=== PATIENT | female | born 2000 | race Caucasian/White ===

== ENCOUNTER 2023-04-17 03:24 | Inpatient (IN) | payer OTHER, SELFPAY ==
[2023-04-17] VITALS (58 sets, daily range): BP systolic 81–126; BP diastolic 42–88; PULSE 49–150; RESP 14–18; TEMP 35.4–37
[2023-04-17 03:13] LABS: Bilirubin Urine NEGATIVE (NEGATIVE); Blood Urine NEGATIVE (NEGATIVE); Clarity Urine CLEAR (CLEAR); Color Urine LT. YELLOW (YELLOW); Glucose Urine UA NEGATIVE (NEGATIVE); Ketones Urine NEGATIVE (NEGATIVE); Leukocyte Esterase Urine NEGATIVE (NEGATIVE); Nitrite Urine NEGATIVE (NEGATIVE); Protein Urine NEGATIVE (NEG/TRACE); Urobilinogen Urine 0.2 EU/dL (0.2-1.0); pH Urine 7.5 (5.0-9.0)
[2023-04-17 03:14] LABS: Urine Microscopic Indicated NO
[2023-04-17] MEDS: 0.9 % SODIUM CHLORIDE 1,000 ML 125 ML IV ×2 (04:54→10:57)
[2023-04-17 05:03] LABS: Hematocrit 29.6 % (36.0-48.0); Hemoglobin 9.9 g/dL (12.0-16.0); Mean Corpuscular HGB Conc 33.4 g/dL (29.9-35.2); Mean Corpuscular Hemoglobin 27.6 pg (26.7-34.0); Mean Corpuscular Volume 82.5 fL (81.0-99.0); Mean Platelet Volume 11.1 fL (9.5-13.5); Platelet Count 269 10^3/uL (150-450); Red Blood Count 3.59 10^6/uL (4.20-5.40); White Blood Count 11.2 10^3/uL (4.0-11.0)
[2023-04-17] MEDS: ROPIVACAINE HCL/PF 400 MG/200 ML PREMIX EPIDURAL (06:10)
[2023-04-17] MEDS: 0.9 % SODIUM CHLORIDE 1,000 ML 999 ML IV ×2 (06:12→07:40)
[2023-04-17] MEDS: EPHEDRINE SULFATE 50 MG/ML VIAL IV (06:46)
[2023-04-17 10:43] LABS: Amphetamine Screen Urine NEGATIVE (NEGATIVE); Barbiturates Screen Urine NEGATIVE (NEGATIVE); Benzodiazepines Screen Urine NEGATIVE (NEGATIVE); Buprenorphine Screen Urine NEGATIVE (NEGATIVE); Cannabinoid Screen Urine NEGATIVE (NEGATIVE); Cocaine Screen Urine NEGATIVE (NEGATIVE); Methadone Screen Urine NEGATIVE (NEGATIVE); Methamphetamines Screen Urine NEGATIVE (NEGATIVE); Opiate Screen Urine NEGATIVE (NEGATIVE); Oxycodone Screen Urine NEGATIVE (NEGATIVE); Phencyclidine Screen Urine NEGATIVE (NEGATIVE); Tricyclic Antidepressant Urine NEGATIVE (NEGATIVE)
--- NOTE | 2023-04-17 12:16 | PM.OBPN ---
OB - PN: Subj Subjective Interval history: labor Exam Narrative Exam Narrative: 4 cm, posterior, high, 80 percent vertex membranes intact Constitutional Vital Signs - 24 hr 04/17/23 02:53 04/17/23 02:34 04/17/23 02:34 Temperature 98.1 F 98.1 F Pulse Rate 93 H 93 H Respiratory Rate 18 Blood Pressure 117/70 117/70 Blood Pressure [Left Arm] Oxygen Delivery Method 04/17/23 04:56 04/17/23 05:26 04/17/23 05:56 Temperature Pulse Rate 61 60 77 Respiratory Rate Blood Pressure 109/75 121/72 H 119/64 Blood Pressure [Left Arm] Oxygen Delivery Method 04/17/23 06:02 04/17/23 06:11 04/17/23 06:19 Temperature Pulse Rate 72 69 78 Respiratory Rate Blood Pressure 116/70 108/66 116/58 L Blood Pressure [Left Arm] Oxygen Delivery Method 04/17/23 06:24 04/17/23 06:29 04/17/23 06:33 Temperature Pulse Rate 90 64 86 Respiratory Rate Blood Pressure 104/64 103/56 L 93/55 L Blood Pressure [Left Arm] Oxygen Delivery Method 04/17/23 06:36 04/17/23 06:37 04/17/23 06:41 Temperature Pulse Rate 53 L 49 L 58 L Respiratory Rate Blood Pressure 81/42 L 102/57 L 97/55 L Blood Pressure [Left Arm] Oxygen Delivery Method 04/17/23 06:43 04/17/23 06:45 04/17/23 06:48 Temperature Pulse Rate 62 69 67 Respiratory Rate Blood Pressure 98/58 L 96/59 L 104/61 Blood Pressure [Left Arm] Oxygen Delivery Method 04/17/23 06:51 04/17/23 06:54 04/17/23 06:57 Temperature Pulse Rate 72 87 68 Respiratory Rate Blood Pressure 98/60 102/65 102/65 Blood Pressure [Left Arm] Oxygen Delivery Method 04/17/23 07:00 04/17/23 07:03 04/17/23 07:06 Temperature Pulse Rate 72 84 71 Respiratory Rate Blood Pressure 104/63 102/64 101/61 Blood Pressure [Left Arm] Oxygen Delivery Method 04/17/23 07:11 04/17/23 07:14 04/17/23 07:19 Temperature Pulse Rate 64 65 77 Respiratory Rate Blood Pressure 101/57 L 104/59 L 111/70 Blood Pressure [Left Arm] Oxygen Delivery Method 04/17/23 07:24 04/17/23 07:56 04/17/23 08:26 Temperature Pulse Rate 62 65 62 Respiratory Rate Blood Pressure 103/60 101/60 100/58 L Blood Pressure [Left Arm] Oxygen Delivery Method 04/17/23 09:26 04/17/23 09:56 04/17/23 10:27 Temperature Pulse Rate 75 86 76 Respiratory Rate Blood Pressure 96/55 L 105/55 L 112/63 Blood Pressure [Left Arm] Oxygen Delivery Method 04/17/23 10:50 04/17/23 10:51 04/17/23 10:56 Temperature 95.7 F L 97.2 F L Pulse Rate 65 Respiratory Rate Blood Pressure 110/69 Blood Pressure [Left Arm] Oxygen Delivery Method 04/17/23 11:26 04/17/23 11:56 04/17/23 03:41 Temperature 98 F Pulse Rate 78 65 93 H Respiratory Rate 18 Blood Pressure 104/65 110/70 Blood Pressure [Left Arm] 117/70 Oxygen Delivery Method Room Air 04/17/23 03:41 Temperature Pulse Rate Respiratory Rate Blood Pressure Blood Pressure [Left Arm] Oxygen Delivery Method Room Air Documenting provider has reviewed patient's vital signs: yes Common normals: no apparent distress General appearance: cooperative, comfortable, well kempt and well developed Nutritional appearance: other (normal BMI in ) Orientation/consciousness: Yes awake HENDE Common normals: normocephalic, head/scalp atraumatic, moist oral mucous membranes and dentition normal Head and scalp: normal to inspection, normocephalic and atraumatic Nose: external nose normal External ear: external ears normal Eye Common normals: PERRL and conjunctivae normal Neck & C-Spine Common normals: full ROM and supple Chest Common normals: inspection of chest normal Respiratory Common normals: normal respiratory effort Cardio Common normals: regular rate and regular rhythm GI Common normals: Normal to inspection, nondistended, normoactive bowel sounds present (gravid) Palpation: soft Common normals: no CVA tenderness Bladder/kidney exam: catheter in place External Female Exam: normal appearance of the urethra OB/external & speculum: external exam normal, cervical os open and other (latent phase labor at term) Manual OB Exam: dilated 4 cm, effaced 75%, station -2 and other (posterior) Uterus palpation: other (nontender abdomen and pelvis) Amniotic Fluid: clear Other: patient requesting SROM Back & Pelvis Common normals: no CVA tenderness Extremity Common normals: full ROM Neuro Common normals: oriented x3, CN's II-XII intact bilaterally, moves all extremities, no focal motor deficits and no sensory deficits noted Sensorium/orientation: awake, alert, oriented to person, oriented to place and oriented to time Psych Common normals: mental status grossly normal, thought process normal, cooperative, affect normal, speech normal and activity/motor behavior normal Appearance: grossly normal and well kempt Attitude: calm Activity/motor behavior: appropriate eye contact Results Labs Labs: Short CBC 04/17/23 Range/Units 04:00 WBC 11.2 H (4.0-11.0) 10^3/uL Hgb 9.9 L (12.0-16.0) g/dL Hct 29.6 L (36.0-48.0) % Plt Count 269 (150-450) 10^3/uL Urine 04/17/23 Range/Units 02:40 Urine Color Lt. yellow (YELLOW) Urine Clarity Clear (CLEAR) Urine pH 7.5 (5.0-9.0) Ur Specific [place] 1.020 (1.005-1.025) Urine Protein Negative (NEG/TRACE) mg/dL Urine Glucose (UA) Negative (NEGATIVE) mg/dL OB - PN: A/P Assessment and Plan (1) Pyloric stenosis: Plan at term in spontaneous labor. Comfortable with epidural. In latent phase labor with adequate contractions. Currently 4 cm, 75 - 80 percent, posterior, vertex and posterior. Discussed options including SROM and or Pitocin. Patient requesting SROM. SROM performed with RN present. Clear amniotic fluid. If contractions become inadequate will begin Pitocin Plan - Vaginal Delivery day: 0 Plan: routine care Time Spent with Patient Time: Total time spent is greater than 50% in coordination of care (as documented) at patient's floor/unit and/or counseling patient: Total time spent with greater than 50% in coordination of care (as documented) at patient's floor/unit and/or counseling patient: 25 - 35 minutes
--- NOTE | 2023-04-17 13:49 | PM.OBHP ---
OB - H&P: HPI History of Present Illness Chief complaint: contractions : 2 Para: 1 Date of last menstrual period: see ob record Gestational age based on last menstrual period: 38 + weeks Indications for induction: other Narrative: multip, has son a little over one year old, presented in latent phase labor with intack membranes, GBS neg, requesting epidural, OB record reviewed History of Present Dating criteria: LMP confirmed by 2nd trimester US care: good care Ultrasounds: normal 1st trimester US and normal mid trimester US Abnormal ultrasound findings: none recorded and patient unaware of any Medical complications OB: none Labs Rubella: immune RPR/VDLR: nonreactive GBS status: negative HBsAG: negative Narrative: cat I FH tracing, admit for labor, may have epidural, ob record reviewed, augment if indicated Review of Systems ROS Status of ROS 10 or more systems reviewed and unremarkable except as noted in history and below [facility] Medical History (Updated 04/17/23 @ 16:00 by Mildred Ramirez MD) Family History Mother Family history of cancer Social History Do you think of yourself as: straight/heterosexual Gender Identity: female Meds Home Medications and Allergies Home Medications Medication Instructions Recorded Confirmed Type pantoprazole 40 mg tablet,delayed mg PO 04/17/23 History release Allergies Allergy/AdvReac Type Severity Reaction Status Date / Time No Known Drug Allergies Allergy Verified 04/17/23 16:37 Exam Narrative Exam Narrative: aware of contractions, tolerable Constitutional Vital Signs - 24 hr 04/17/23 02:53 04/17/23 02:34 04/17/23 02:34 Temperature 98.1 F 98.1 F Pulse Rate 93 H 93 H Respiratory Rate 18 Blood Pressure 117/70 117/70 Blood Pressure [Left Arm] Oxygen Delivery Method 04/17/23 04:56 04/17/23 05:26 04/17/23 05:56 Temperature Pulse Rate 61 60 77 Respiratory Rate Blood Pressure 109/75 121/72 H 119/64 Blood Pressure [Left Arm] Oxygen Delivery Method 04/17/23 06:02 04/17/23 06:11 04/17/23 06:19 Temperature Pulse Rate 72 69 78 Respiratory Rate Blood Pressure 116/70 108/66 116/58 L Blood Pressure [Left Arm] Oxygen Delivery Method 04/17/23 06:24 04/17/23 06:29 04/17/23 06:33 Temperature Pulse Rate 90 64 86 Respiratory Rate Blood Pressure 104/64 103/56 L 93/55 L Blood Pressure [Left Arm] Oxygen Delivery Method 04/17/23 06:36 04/17/23 06:37 04/17/23 06:41 Temperature Pulse Rate 53 L 49 L 58 L Respiratory Rate Blood Pressure 81/42 L 102/57 L 97/55 L Blood Pressure [Left Arm] Oxygen Delivery Method 04/17/23 06:43 04/17/23 06:45 04/17/23 06:48 Temperature Pulse Rate 62 69 67 Respiratory Rate Blood Pressure 98/58 L 96/59 L 104/61 Blood Pressure [Left Arm] Oxygen Delivery Method 04/17/23 06:51 04/17/23 06:54 04/17/23 06:57 Temperature Pulse Rate 72 87 68 Respiratory Rate Blood Pressure 98/60 102/65 102/65 Blood Pressure [Left Arm] Oxygen Delivery Method 04/17/23 07:00 04/17/23 07:03 04/17/23 07:06 Temperature Pulse Rate 72 84 71 Respiratory Rate Blood Pressure 104/63 102/64 101/61 Blood Pressure [Left Arm] Oxygen Delivery Method 04/17/23 07:11 04/17/23 07:14 04/17/23 07:19 Temperature Pulse Rate 64 65 77 Respiratory Rate Blood Pressure 101/57 L 104/59 L 111/70 Blood Pressure [Left Arm] Oxygen Delivery Method 04/17/23 07:24 04/17/23 07:56 04/17/23 08:26 Temperature Pulse Rate 62 65 62 Respiratory Rate Blood Pressure 103/60 101/60 100/58 L Blood Pressure [Left Arm] Oxygen Delivery Method 04/17/23 09:26 04/17/23 09:56 04/17/23 10:27 Temperature Pulse Rate 75 86 76 Respiratory Rate Blood Pressure 96/55 L 105/55 L 112/63 Blood Pressure [Left Arm] Oxygen Delivery Method 04/17/23 10:50 04/17/23 10:51 04/17/23 10:56 Temperature 95.7 F L 97.2 F L Pulse Rate 65 Respiratory Rate Blood Pressure 110/69 Blood Pressure [Left Arm] Oxygen Delivery Method 04/17/23 11:26 04/17/23 11:56 04/17/23 12:28 Temperature Pulse Rate 78 65 60 Respiratory Rate Blood Pressure 104/65 110/70 112/70 Blood Pressure [Left Arm] Oxygen Delivery Method 04/17/23 12:56 04/17/23 13:26 04/17/23 03:41 Temperature 98 F Pulse Rate 67 60 93 H Respiratory Rate 18 Blood Pressure 109/75 90/52 L Blood Pressure [Left Arm] 117/70 Oxygen Delivery Method Room Air 04/17/23 03:41 Temperature Pulse Rate Respiratory Rate Blood Pressure Blood Pressure [Left Arm] Oxygen Delivery Method Room Air Documenting provider has reviewed patient's vital signs: yes Common normals: no apparent distress, average body habitus, oriented x3, no limitations, healthy appearing, alert and well nourished General appearance: cooperative, comfortable and well developed Nutritional appearance: thin (normal BSA) Orientation/consciousness: Yes awake, Yes oriented to person, Yes oriented to place and Yes oriented to time HENMT Common normals: normocephalic and head/scalp atraumatic Head and scalp: atraumatic Eye Common normals: PERRL Neck & C-Spine Common normals: full ROM Chest Common normals: inspection of chest normal Respiratory Common normals: normal respiratory effort Cardio Common normals: regular rate and regular rhythm GI Common normals: Normal to inspection, nondistended, normoactive bowel sounds present (gravid at term) Common normals: external appearance normal and appearance of the vagina normal External Female Exam: normal appearance of the urethra Speculum exam - cervix: cervical os open Bimanual exam- vagina & uterus: normal cervical palpation and uterus non-tender Bimanual exam- adnexa, other: pelvic support normal Back & Pelvis Common normals: no CVA tenderness Extremity Common normals: normal to inspection and full ROM Neuro Sensorium/orientation: awake, alert, oriented to person, oriented to place and oriented to time Speech: speech normal Motor exam: strength 5/5 throughout Psych Common normals: mental status grossly normal, thought process normal, cooperative and affect normal Attitude: calm Speech: normal speech Thought process: normal thought process Results Labs Labs: Short CBC 04/17/23 Range/Units 04:00 WBC 11.2 H (4.0-11.0) 10^3/uL Hgb 9.9 L (12.0-16.0) g/dL Hct 29.6 L (36.0-48.0) % Plt Count 269 (150-450) 10^3/uL Urine 04/17/23 Range/Units 02:40 Urine Color Lt. yellow (YELLOW) Urine Clarity Clear (CLEAR) Urine pH 7.5 (5.0-9.0) Ur Specific [place] 1.020 (1.005-1.025) Urine Protein Negative (NEG/TRACE) mg/dL Urine Glucose (UA) Negative (NEGATIVE) mg/dL OB - A/P Assessment and Plan (1) Pyloric stenosis: Plan , 38 weeks, spontaneous labor, 4cm/75/-2 posterior on presentation, regular painful contractions requesting epidural, cat I heart tracing, admit for vaginal delivery. expectant management. pitocin only if contractions inadequate Additional Plan Induction method: artificial rupture of membranes (will AROM per patient's request if head is applied to cervix) Plan: expectant management and other (will only start pitocin if contractions are inadequate)
--- NOTE | 2023-04-17 16:54 | PM.OBPRCVD ---
Procedure Procedure: AT TERM Intrapartal events: None Delivery augmentation: rupture of membranes Delivery monitor: external FHT and external uterine Route of delivery: vacuum extraction (VACUUM APPLIED DUE TO MATERNAL EXHAUSTION AT PLUS TWO STATION, BABY WAS LARGER THAN SON WAS, ALSO MIDLINE EPISIOTOMY CUT, VACUUM ATTEMPTS THREE THEN WENT ON TO DELIVER BABY WITH EPISIOTOMY) Indication for instrumentation: maternal exhaustion Episiotomy Description: midline Laceration description: perineal - 2nd degree Delivery repair: Vicryl Estimated blood loss (mL): 250 Anesthesia type: Epidural Disposition: no change Complications: NONE Delivery date: 04/17/23 Gender: female presentation: vertex Placental delivery description: Spontaneous cord description: 3 Vessels cord description comment: PLACENTA INTACT, NORMAL UMBILICAL CORD heart rate - 1 minute: 100 bpm or Greater respiratory effort - 1 minute: Spontaneous/Strong Cry muscle tone - 1 minute: Active Movement reflex response - 1 minute: Prompt Response color - 1 minute: Bluish Hands or Feet total score - 1 minute: 9
--- NOTE | 2023-04-17 19:21 | W.PC.ACHO ---
Registration Status: ADM IN Primary Language: Kazakh Preferred Language: Kazakh Active Medications Generic Name Dose Route Start Last Admin Trade Name Freq PRN Reason Stop Dose Admin Acetaminophen 650 mg 04/17/23 17:02 Acetaminophen 325 Mg Tablet PO Q6H PRN Mild Pain Carboprost Tromethamine 250 mcg 04/17/23 03:23 Carboprost Tromethamine 250 Mcg/Ml 1 Ml Vial IM Q15M PRN Bleeding Diphenhydramine HCl 25 mg 04/17/23 04:49 Diphenhydramine Hcl 50 Mg/Ml (1ml) Vial IV Q6H PRN Itching Docusate Sodium 100 mg 04/18/23 09:00 Docusate Sodium 100 Mg Capsule PO BID JANINA Ephedrine Sulfate 5 mg 04/17/23 04:49 04/17/23 06:46 Ephedrine Sulfate 50 Mg/Ml Vial IV 5 mg Q5M PRN Administration Blood Pressure - Low Fentanyl Citrate 100 mcg 04/17/23 04:49 Fentanyl Citrate/Pf 100 Mcg/2 Ml Vial EPIDURAL Q4H PRN Pain Sodium Chloride 1,000 mls @ 125 mls/hr 04/17/23 03:30 04/17/23 10:57 Sodium Chloride 0.9% 1,000 Ml IV 125 mls/hr .Q8H JANINA Administration Ropivacaine/Sodium Chloride 400 mg in 200 mls @ 6 mls/hr 04/17/23 05:00 04/17/23 06:10 Naropin 0.2% 400 Mg/200 Ml Bag EPIDURAL 5 mls/hr Q24H JANINA 5 mls/hr Administration Oxytocin 20 unit/ Sodium 1,002 mls @ 125 mls/hr 04/17/23 15:15 04/17/23 16:24 Chloride IV 04/17/23 23:15 20 mls/hr ONCE ONE 20 mls/hr Administration Protocol Ibuprofen 600 mg 04/17/23 17:02 Ibuprofen 600 Mg Tablet PO Q6H PRN Moderate Pain Lidocaine 5 ml 04/17/23 03:23 Lidocaine Viscous 2% 15 Ml Topical Solution TOPICAL DIRECTED PRN Pain Lidocaine 1 ml 04/17/23 03:23 Lidocaine Hcl 1% 200 Mg/20 Ml Mdv INJ DIRECTED PRN Pain Lidocaine 5 ml 04/17/23 04:49 Lidocaine Hcl 2% Pf 100 Mg/5 Ml Vial INJ Q1H PRN Allergic Symptoms Methylergonovine Maleate 0.2 mg 04/17/23 03:23 Methylergonovine Maleate 0.2 Mg/Ml Ampule IM ONCE PRN Uterine Contractility/Contract Methylergonovine Maleate 0.2 mg 04/17/23 03:23 Methylergonovine Maleate 0.2 Mg Tablet PO Q4H PRN Uterine Contractility/Contract Nalbuphine HCl 10 mg 04/17/23 03:23 Nalbuphine Hcl 10 Mg/Ml Ampule IV Q3H PRN Pain Ondansetron HCl 4 mg 04/17/23 03:23 Ondansetron Pf 4 Mg/2 Ml Vial IV Q6H PRN Nausea And Vomiting Ondansetron HCl 4 mg 04/17/23 03:23 Ondansetron 4 Mg Rapdis Tablet SL Q6H PRN Nausea And Vomiting Oxytocin 10 unit 04/17/23 03:23 Oxytocin 100 Unit/10 Ml Vial IM ONCE PRN Uterine Bleeding Diet Category Date Time Status Regular Consistency Diet Diet 04/17/23 Dinner Active IV Insertion/Site Date of IV Line Insertion [18g 04/17/23 right Forearm] IV Insertion Time [18g right 04:00 Forearm] Neurology Patient orientation (short person,place,time,situation list) Udell coma scale total score 15 Respiratory Lung sounds [Throughout] clear Oxygen Delivery Method Room Air Oxygen Delivery Method Room Air Cardiology Heart Sounds Regular Renal Bladder Pattern Continent
[2023-04-18] MEDS: IBUPROFEN 600 MG TABLET PO ×2 (01:16→12:33)
[2023-04-18 06:21] LABS: Basophils Percent Auto 0.4 % (0.2-2.0); Eosinophils Percent Auto 0.4 % (0.9-7.0); Hematocrit 26.4 % (36.0-48.0); Hemoglobin 8.6 g/dL (12.0-16.0); Immature Granulocytes Abs Auto 0.05 10^3/uL (0.00-0.03); Immature Granulocytes Pct Auto 0.5 % (0.0-0.5); Lymphocytes Absolute Auto 2.6 10^3/uL (1.2-3.8); Lymphocytes Percent Auto 24.5 % (20.5-60.0); Mean Corpuscular HGB Conc 32.6 g/dL (29.9-35.2); Mean Corpuscular Hemoglobin 27.5 pg (26.7-34.0); Mean Corpuscular Volume 84.3 fL (81.0-99.0); Mean Platelet Volume 10.9 fL (9.5-13.5); Monocytes Absolute Auto 0.6 10^3/uL (0.3-0.8); Monocytes Percent Auto 5.6 % (1.7-12.0); Neutrophils Absolute Auto 7.2 10^3/uL (1.4-6.5); Neutrophils Percent Auto 68.6 % (43.0-75.0); Platelet Count 225 10^3/uL (150-450); Red Blood Count 3.13 10^6/uL (4.20-5.40); Red Cell Distribution Width 13.2 % (11.0-15.0); White Blood Count 10.5 10^3/uL (4.0-11.0)
[2023-04-18 08:16] VITALS: BP 118/80; PULSE 82
[2023-04-18 08:17] VITALS: TEMP 36.6
--- NOTE | 2023-04-18 09:40 | SUR.HOLD ---
0810-pt awake, pleasant. Plan of care reviewed. Pt requests to be d/c in 24 hours after delivery. Denies pain or needs at this time. plan of care also reviewed, teaching reviewed and verbalizes understanding
--- NOTE | 2023-04-18 11:02 | P.DS_ITS ---
PATIENT TO CONTINUE VITAMINS WHICH CONTAIN IRON THUS WILL NOT GIVE ADDITIONAL SCRIPT FOR IRON DS: Providers Provider Date of admission: 04/17/23 03:24 Primary care physician: Non-Staff Physician, Admitting clinician: Antonio Juarez Attending physician on admission: Antonio Juarez Attending physician on discharge: Mildred Ramirez Discharging clinician: Mildred Ramirez Anticipated date of discharge: 04/18/23 DS: Diagnosis Discharge Diagnosis (1) Pyloric stenosis: Assessment and plan: S/P SURGICAL REPAIR AT ONE MONTH OF LIFE Plan CONTINUE WITH CURRENT MANAGEMENT BEHAVIORS FOR RESIDUAL ISSUES WITH REPAIRED PYLORIC STENOSIS OB - DS: Summary Hospital Course Hospital Course: UNCOMPLICATED Time spent discussing smoking cessation with patient: 3 to 10 minutes (NA) Peripartum Data - Vaginal Delivery Laceration description: none Episiotomy Description: midline Procedures: SECOND DEGREE REPAIR INTACT Complications complications: none Infant Delivery method: assisted vaginal delivery Gender: female Discharge plan: home Status at Discharge Functional status at discharge: independent ambulation Time Spent with Patient Time attestation: Total time spent providing and/or coordinating discharge services: Time spent: less than 30 minutes Specific discharge activities: PELVIC REST 6 WEEKS, EXAM APPOINTMENT TO BE MADE FOR SIX WEEKS, GENERAL COVID AND RSV PRECAUTIONS, NO HEAVY LIFTING, TEN TO TWELVE GLASSES OF WATER A DAY, SPORTS BRA IF DECIDES TO NOT BREAST FEED, MAY CLIMB STAIRS, MAY SHOWER, USE BATH TUB SITZ BATH NEEDED, IBUPROFEN AND COLACE ORDERED, (SCRIPTS PROVIDED) Exam Constitutional Vital Signs - 24 hr 04/17/23 11:26 04/17/23 11:56 04/17/23 12:28 Temperature Pulse Rate 78 65 60 Respiratory Rate Blood Pressure 104/65 110/70 112/70 Blood Pressure [Left Arm] Oxygen Delivery Method 04/17/23 12:56 04/17/23 13:26 04/17/23 13:56 Temperature Pulse Rate 67 60 61 Respiratory Rate Blood Pressure 109/75 90/52 L 106/64 Blood Pressure [Left Arm] Oxygen Delivery Method 04/17/23 14:27 04/17/23 13:44 04/17/23 14:57 Temperature 97.7 F Pulse Rate 67 70 Respiratory Rate 16 Blood Pressure 110/73 111/73 Blood Pressure [Left Arm] Oxygen Delivery Method 04/17/23 15:26 04/17/23 15:56 04/17/23 16:30 Temperature 98.1 F Pulse Rate 68 150 H 86 Respiratory Rate Blood Pressure 126/69 H 104/88 H 117/76 Blood Pressure [Left Arm] Oxygen Delivery Method 04/17/23 16:42 04/17/23 16:56 04/17/23 17:11 Temperature Pulse Rate 82 90 74 Respiratory Rate Blood Pressure 117/61 118/58 L 119/65 Blood Pressure [Left Arm] Oxygen Delivery Method 04/17/23 17:26 04/17/23 17:27 04/17/23 17:41 Temperature 97.5 F L Pulse Rate 66 64 Respiratory Rate Blood Pressure 110/68 109/72 Blood Pressure [Left Arm] Oxygen Delivery Method 04/17/23 17:56 04/17/23 18:11 04/17/23 23:06 Temperature Pulse Rate 65 75 62 Respiratory Rate Blood Pressure 109/74 115/79 107/70 Blood Pressure [Left Arm] Oxygen Delivery Method 04/17/23 23:05 04/17/23 23:05 04/18/23 08:16 Temperature 98.6 F Pulse Rate 62 82 Respiratory Rate 14 14 Blood Pressure 118/80 H Blood Pressure [Left Arm] 107/70 Oxygen Delivery Method Room Air Room Air 04/18/23 08:17 Temperature 97.9 F Pulse Rate Respiratory Rate Blood Pressure Blood Pressure [Left Arm] Oxygen Delivery Method Documenting provider has reviewed patient's vital signs: yes Common normals: no apparent distress, average body habitus, oriented x3, no limitations, healthy appearing, alert and well nourished General appearance: cooperative and comfortable [facility] Common normals: normocephalic and head/scalp atraumatic Eye Common normals: PERRL and conjunctivae normal Neck & C-Spine Common normals: full ROM and supple Chest Common normals: inspection of chest normal Respiratory Common normals: normal respiratory effort Cardio Common normals: regular rate and regular rhythm GI Common normals: Normal to inspection, nondistended, normoactive bowel sounds present Common normals: no CVA tenderness and appearance of the vagina normal Extremity Common normals: normal to inspection and full ROM Neuro Common normals: oriented x3, CN's II-XII intact bilaterally, no focal motor deficits and no sensory deficits noted DS: Data Data Completed and Pending Labs on day of discharge: Labs from last 24 hours 04/18/23 05:45 WBC 10.5 RBC 3.13 L Hgb 8.6 L Hct 26.4 L MCV 84.3 MCH 27.5 MCHC 32.6 RDW 13.2 Plt Count 225 MPV 10.9 Neut % (Auto) 68.6 Lymph % (Auto) 24.5 Williamson % (Auto) 5.6 Eos % (Auto) 0.4 L Baso % (Auto) 0.4 Neut # (Auto) 7.2 H Lymph # (Auto) 2.6 [place] # (Auto) 0.6 Eos # (Auto) 0.0 Baso # (Auto) 0.0 Abs Immat Gran (auto) 0.05 H Imm/Tot Granulo (auto) 0.5 Additional Comments Additional comments: CALL FOR PROBLEM OR CONCERN Discharge Plan Discharge Disposition: Home, Self-Care Condition: Good Assessment: PPD 1 S/P NORMAL VAGINAL DELIVERY AT TERM WITHOUT COMPLICATIONS. VIABLE INFANT GIRL. BLOOD SUGARS STABLE. GBS NEGATIVE. MATERNAL EXAM NONFOCAL. BABY CLEARED FOR DISCHARGE AT 24 HOURS. MOTHER REQUESTING DISCHARGE AT 24 HOURS. BREAST FEEDING. BABY LATCHING WELL. AFEBRILE. VSS. PERINEAL SECOND DEGREE REPAIR INTACT. PASSING FLATUS PER RECTUM. NORMAL LOCHIA. MILK NOT IN YET. OF NOTE, BREAST FED FIRST CHILD FOR 12 MONTHS. EXTREMITIES WITHOUT PAIN OR EDEMA. ELIMINATING, AMBULATING AND EATING NORMALLY. NO CONTRAINDICATION FOR DISCHARGE AT 24 HOURS. THIS AM CBC REVIEWED. Health Concerns: NONE Plan of Treatment: WILL DISCHARGE HOME AT 24 HOURS. TO FOLLOW UP WITH OB CARE PROVIDER IN 6 WEEKS. PELVIC REST UNTIL EXAM. AWARE BREAST FEEDING IS NOT CONTROL. Discharge Medications: Continued pantoprazole 40 mg tablet,delayed release (DR/EC) PO Activity: resume usual activities as tolerated Activity Detail: NO HEAVY LIFTING, WALKING IS EXERCISE FOR SIX WEEKS, PELVIC REST SIX WEEKS, STAIRS OK, SHOWER OK, USE BATHTUB SITZ BATH NEEDED TO SOOTH PERINEAL REPAIR Diet: regular diet Diet Detail: 10 TO 12 GLASSES OF WATER A DAY, (8 OUNCE) Patient Instructions: Vaginal Delivery (DC), Vaginal Delivery (GEN) Forms: Portal Instructions Follow Up Appointments: MAKE POST APPOINTMENT WITH OB CARE PROVIDER IN SIX WEEKS. BABY WILL NEED TO SEE SHOE DRESSER WITHIN ONE WEEK OF DELIVERY. Discharge location: DISCHARGE TO HOME AT 24 HOURS S/P .
[2023-04-18] MEDS: DOCUSATE SODIUM 100 MG CAPSULE PO (12:33)
--- NOTE | 2023-04-18 14:14 | PC.NURSE ---
reports relief from pain after Motrin given. denies needs at this time.
--- NOTE | 2023-04-18 17:58 | PC.NURSE ---
visitor in, infant to nursery for nrewborn testing. Pt to shower, denies pain or needs. 1740- returned to room. d/c Plan of care reviewed. verbalizes understanding.
== END 2023-04-18 19:24 | disposition home or self-care (01) | DRG 807 ==
PROVIDERS: Admitting Provider Obstetrics & Gynecology; Visit Provider Obstetrics & Gynecology
DX: O99.892 Other specified diseases and conditions complicating childbirth (principal); Z37.0 Single live birth; Q40.0 Congenital hypertrophic pyloric stenosis; O75.81 Maternal exhaustion complicating labor and delivery; O70.1 Second degree perineal laceration during delivery; Z3A.38 38 weeks gestation of pregnancy; Z79.899 Other long term (current) drug therapy; Z98.890 Other specified postprocedural states; Z80.9 Family history of malignant neoplasm, unspecified
CPT/HCPCS: 36415; 59025; 80307; 81003; 85025; 85027; 86850; 86900; 86901; 96374; 96375

== ENCOUNTER 2023-11-24 20:57 | Outpatient (REF) | payer OTHER, SELFPAY ==
[2023-11-27 17:08] LABS: Age Gdln ACOG Testing Note (.); IGP, rfx Aptima HPV ASCU Note (.)
== END 2023-11-24 20:58 | disposition home or self-care (01) ==
LOC: LAB 20:57
PROVIDERS: Visit Provider Obstetrics & Gynecology
DX: Z01.419 Encounter for gynecological examination (general) (routine) without abnormal findings (principal)
CPT/HCPCS: G0145

== ENCOUNTER 2024-12-07 21:29 | Outpatient (REF) | payer OTHER, SELFPAY ==
--- OUTSIDE RECORDS SUMMARY | 2024-12-07 21:33 | XMS_ITS | CCD ---
Author Organization [facility] CliniSyut Care Team Providers Care Casino Attendant Name Role Phone DARYL ., DR REYES Attending Unavailable DARYL ., DR REYES Admitting Unavailable DARYL ., DR REYES Consulting Unavailable MISC, DR MOLINA Primary Care Unavailable DARYL ., DR REYES Attending Unavailable DARYL ., DR REYES Admitting Unavailable DARYL ., DR REYES Consulting Unavailable MISC, DR MOLINA Primary Care Unavailable ZIEBER, DR LIYA Rouse Consulting Unavailable DARYL ., DR REYES Admitting Unavailable DARYL ., DR REYES Consulting Unavailable MISC, DR MOLINA Primary Care Unavailable DARYL ., DR REYES Attending Unavailable ZIEBER, DR LIYA Rouse Consulting Unavailable DARYL ., DR REYES Admitting Unavailable DARYL ., DR REYES Consulting Unavailable MISC, DR MOLINA Primary Care Unavailable DARYL ., DR REYES Attending Unavailable DARYL ., DR REYES Consulting Unavailable MISC, DR MOLINA Primary Care Unavailable DARYL ., DR REYES Admitting Unavailable DARYL ., DR REYES Attending Unavailable MISC, DR MOLINA Primary Care Unavailable JUAN GRAJEDA Admitting Unavailable JUAN GRAJEDA Consulting Unavailable JUAN GRAJEDA Attending Unavailable MISC, DR MOLINA Primary Care Unavailable HAY ., DR RO Attending Unavailable HAY ., DR RO Admitting Unavailable ZIEBER, DR LIYA Rouse Consulting Unavailable GRECHNY ., ADAM ARMIJO Consulting Unavailwilber e HAY ., DR RO Consulting Unavailable DARYL ., DR REYES Consulting Unavailable MISC, DR MOLINA Primary Care Unavailable KARASIK ., DR DE LA GARZA Attending Unavailabl e VANDANA ., DR DE LA GARZA Admitting UnavailSANJAY Blakely Consulting Unavailable DARYL ., DR REYES Admitting Unavailable MISC, DR MOLINA Primary Care Unavailable MARTIN, DR SANJAY Mason Consulting Unavailable DARYL ., DR REYES Attending Unavailable DARYL ., DR REYES Consulting Unavailable DARYL ., DR REYES Consulting Unavailable DARYL ., DR REYES Attending Unavailable MIS, DR MOLINA Primary Care Unavailable DARYL ., DR REYES Admitting Unavailable DARYL ., DR REYES Consulting Unavailable MISC, DR MOLINA Primary Care Unavailable DARYL ., DR REYES Admitting Unavailable DARYL ., DR REYES Attending Unavailable DARYL ., DR REYES Attending Unavailable MIS, DR MOLINA Primary Care Unavailable DARYL ., DR REYES Admitting Unavailable MARTIN, DR SANJAY Mason Consulting Unavailable DARYL ., DR REYES Consulting Unavailable DARYL ., DR REYES Consulting Unavailable DRAYL ., DR REYES Attending Unavailable DARYL ., DR REYES Admitting Unavailable MIS, DR MOLINA Primary Care Unavailable Carrie Sahni Unavailable DARYL, ERIC Attending Unavailable Arielle Ames Primary Care [facility] Medications Current Medications Medication Drug Class(es) Dates Sig (Normalized) Sig (Original) citalopram 10 mg oral tablet (2 sources) Serotonin Reuptake Inhibitor Start: 08-30-2024 take 1 tablet by mouth in the morning citalopram (CeleXA) 10 mg tablet Indications: Generalized anxiety disorder Take 1 tablet (10 mg total) by mouth in the morning. 90 tablet 1 08/30/2024 Active take 1 tablet by christopher th every twenty-four hours CeleXA 10 MG 1 tablet Orally Once a day Active Low-Ogestrel (1 source) Low-Ogestrel Act mala Problems Active Problems Problem Classification Problem Date Documented Da te Episodic/Chronic Anxiety disorders (1 source) Generalized anxiety disorder; Translations: [Generalized anxiety disorder] 08-30-2024 Chronic Gastrointestinal hemorrhage (1 source) Hematemesis; Translations: [HEMATEMESIS] Onset: 03-18-2023 Episodic Malaise and fatigue (1 source) Fatigue; Translations: [Chronic fatigue, unspecified] Chronic Menstrual disorders (4 sources) Irregular menstruation, unspecified; Translations: [IRREGULAR MENSTRUATION UNSPECIFIED] Onset: 10-09-2022 Chronic Other complications of (4 sources) Decreased movements, third trimester, not applicable or unspecified; Translations: [DECR MOVEMENTS 3RD TRI NA/UNS] Onset: 04-07-2023 Episodic Other complications of (4 sources) Other specified related conditions, third trimester; Translations: [OTH SPEC PREG RELATED COND 3RD TRI] Onset: 03-17-2023 Episodic Other complications of (4 sources) Uterine size-date discrepancy, third trimester; Translations: [UTERINE SZ-DATE DISCREPANCY 3RD TRI] Onset: 03-11-2023 Episodic Other and delivery including normal (9 sources) Encounter for supervision of normal , unspecified, third trimester; Translations: [Encounter for supervision of normal , unspecified, unspecified trimester] Onset: 12-01-2022 Episodic Other upper respiratory infections (2 sources) Acute pharyngitis, unspecified; Translations: [Acute upper respiratory infection, unspecified] Episodic Residual codes; unclassified (1 source) 37 weeks gestation of ; Translations: [37 WEEKS GESTATION OF ] Onset: 04-08-2023 Episodic Residual codes; unclassified (1 source) 34 weeks gestation of ; Translations: [34 WEEKS GESTATION OF ] Onset: 03-18-2023 Episodic Residual codes; unclassified (1 source) 33 weeks gestation of ; Translations: [33 WEEKS GESTATION OF ] Onset: 03-18-2023 Episodic Transient cerebral ischemia (1 source) Transient cerebral ischemia; Translations: [Transient cerebral ischemic attack, unspecified] Onset: 02-28-2022 02-28-2022 Chronic Past or Other Problems Problem Classification Problem Date Documented Date Episodic/Chronic Hemorrhage during ; abruptio placenta; placenta previa (5 sources) Hemorrhage in early , unspecified; Translations: [Threatened ] Onset: 10-12-2022 Episodic Immunizations and screening for infectious disease (1 source) Contact with and (suspected) exposure to infections with a predominantly sexual mode of transmission; Translations: [CONTCT W EXPOS INFECT SEXUAL TRNSMS] Onset: 11-21-2022 Episodic Mood disorders (1 source) Mood disorders Onset: 08-30-2024 08-30-2024 Other female genital disorders (5 sources) Other specified noninflammatory disorders of vagina; Translations: [OTH SPEC NONINFLAMMATORY D/O VAGINA] Onset: 08-07-2022 Episodic Other screening for suspected conditions (not mental disorders or infectious disease) (8 sources) Encounter for screening, unspecified; Translations: [Encounter for screening for malignant neoplasm of cervix] Onset: 11-20-2022 Episodic Residual codes; unclassified (1 source) 11 weeks gestation of ; Translations: [11 WEEKS GESTATION OF ] Onset: 10-14-2022 Episodic Results Test Name Value Interpretation Reference Range Facility [facility] 09-26-2023 S. pyogenes Org specific cx Ql (Throat) Negative [facility] Other [facility] Other US PREG BIOPHY W NON STRESSo n 04-07-2023 US PREG BIOPHY W NON STRESS EXAM: US biophysical profile W NON STRESS HISTORY: . Reduced movement . TECHNIQUE: Grayscale and color imaging was performed FINDINGS: There is evidence of an intrauterine in the vertex presentation with a heart rate of 149. Amniotic fluid index was 19 cm which is between the fifth and 95th percentile. motion 2, tone 2, breathing 2, and amniotic fluid volume 2. IMPRESSION: 1. Intrauterine in the vertex presentation with heart rate of 149. 2. Biophysical profile 06/16. Electronically authenticated by: SANJAY REYNOSO Date: 2023-04-07 17:54 Normal [facility] GROUP B STREP CULTUREon 03-10 S. agalactiae Ag Ql (Unsp spec) Culture Observations: NEGATIVE FOR GROUP B STREPTOCOCCUS. Normal [facility] Comment on above: Performed By: #### TETE VELEZ #### [facility] [address] [address] [address] Amadeo Cedeno CBC AUTO DIFFon 03-17-2023 BASO # 0.1 103/ul Normal 0.0-0.1 [facility] Comment on above: Performed By: #### C T/NGNA #### [facility] [address] [address] [address] Amadeo Cedeno Basophils/100 WBC (Bld) 0.6 % Normal 0.2-2.0 [facility] Comment on above: Performed By: #### C T/NGNA #### [facility] [address] [address] [address] Amadeo Cedeno EO # 0.1 103/ul Normal 0.0-0.7 [facility] Comment on above: Performed By: #### C T/NGNA #### [facility] [address] [place] [address] Dr. Amadeo Cedeno Eosinophils/100 WBC (Bld) 0.7 % Critically low 0.9-7.0 [facility] Comment on above: Performed By: #### C T/NGNA #### [facility] [address] [place] [address] Dr. Amadeo Cedeno Erythrocyte distribution width (RBC) [Ratio] 13.2 % Normal 11.0-15.0 [facility] Comment on above: Performed By: #### C T/NGNA #### [facility] [address] [place] [address] Dr. Amadeo Cedeno Hematocrit (Bld) [Volume fraction] 29.5 % Critically low 36.0-48.0 [facility] Comment on above: Performed By: #### C T/NGNA #### [facility] [address] [place] [address] Dr. Amadeo Cedeno Hemoglobin (Bld) [Mass/Vol] 10.0 g/dL Critically low 12.0-16.0 [facility] Comment on above: Performed By: #### C T/NGNA #### [facility] [address] [place] [address] Dr. Amadeo Cedeno IG # 0.17 10e3/ul Critically high 0.00-0.03 [facility] Comment on above: Performed By: #### C T/NGNA #### [facility] [address] [place] [address] Dr. Amadeo Cedeno IG % 1.7 % Critically high 0.0-0.5 [facility] Comment on above: Performed By: #### C T/NGNA #### [facility] [address] [place] [address] Dr. Amadeo Cedeno LYMPH # 2.7 103/ul Normal 1.2-3.8 [facility] Comment on above: Performed By: #### C T/NGNA #### [facility] [address] [place] [address] Dr. Amadeo Cedeno Lymphocytes/100 WBC (Bld) 27.3 % Normal 20.5-60.0 [facility] Comment on above: Performed By: #### C T/NGNA #### [facility] [address] [place] [address] Dr. Amadeo Cedeno MANUAL DIFF REQ NO Normal [facility] Comment on above: Performed By: #### C T/NGNA #### [facility] [address] [place] [address] Dr. Amadeo Cedeno MCH (RBC) [Entitic mass] 28.5 pg Normal 26.7-34.0 [facility] Comment on above: Performed By: #### C T/NGNA #### [facility] [address] [place] [address] Dr. Amadeo Cedeno MCHC (RBC) [Mass/Vol] 33.9 g/dL Normal 29.9-35.2 [facility] Comment on above: Performed By: #### C T/NGNA #### [facility] [address] [place] [address] Dr. Amadeo Cedeno MCV (RBC) [Entitic vol] 84.0 fL Normal 81.0-99.0 [facility] Comment on above: Performed By: #### C T/NGNA #### [facility] [address] [place] [address] Dr. Amadeo Cedeno MONO # 0.6 103/ul Normal 0.3-0.8 [facility] Comment on above: Performed By: #### C T/NGNA #### [facility] [address] [place] [address] Dr. Amadeo Cedeno Monocytes/100 WBC (Bld) 6.1 % Normal 1.7-12.0 [facility] Comment on above: Performed By: #### C T/NGNA #### [facility] [address] [place] [address] Dr. Amadeo Cedeno NEUT # 6.3 103/ul Normal 1.4-6.5 [facility] Comment on above: Performed By: #### C T/NGNA #### [facility] [address] [address] [address] Amadeo Cedeno Neutrophils/100 WBC (Bld) 63.6 % Normal 43.0-75.0 [facility] Comment on above: Performed By: #### C T/NGNA #### [facility] [address] [address] [address] Amadeo Cedeno Platelet mean volume (Bld) [Entitic vol] 10.8 fL Normal 9.5-13.5 [facility] Comment on above: Performed By: #### C T/NGNA #### [facility] [address] [address] [address] Amadeo Cedeno PLT 225 103/ul Normal 150-450 [facility] Comment on above: Performed By: #### C T/NGNA #### [facility] [address] [place] [address] Dr. Amadeo Cedeno RBC 3.51 106/ul Critically low 4.20-5.40 [facility] Comment on above: Performed By: #### C T/NGNA #### [facility] [address] [place] [address] Dr. Amadeo Cedeno WBC 10.0 103/ul Normal 4.0-11.0 [facility] Comment on above: Performed By: #### C T/NGNA #### [facility] [address] [place] [address] Dr. Amadeo Cedeno BASO # 0.0 103/ul Normal 0.0-0.1 [facility] Comment on above: Performed By: #### C BC #### [facility] [address] [place] [address] Dr. Amadeo Cedeno Basophils/100 WBC (Bld) 0.4 % Normal 0.2-2.0 [facility] Comment on above: Performed By: #### C BC #### [facility] [address] [place] [address] Dr. Amadeo Cedeno EO # 0.1 103/ul Normal 0.0-0.7 [facility] Comment on above: Performed By: #### C BC #### [facility] [address] [place] [address] Dr. Amadeo Cedeno Eosinophils/100 WBC (Bld) 0.7 % Critically low 0.9-7.0 [facility] Comment on above: Performed By: #### C BC #### [facility] [address] [place] [address] Dr. Amadeo Cedeno Erythrocyte distribution width (RBC) [Ratio] 13.3 % Normal 11.0-15.0 [facility] Comment on above: Performed By: #### C BC #### [facility] [address] [place] [address] Dr. Amadeo Cedeno Hematocrit (Bld) [Volume fraction] 29.9 % Critically low 36.0-48.0 [facility] Comment on above: Performed By: #### C BC #### [facility] [address] [place] [address] Dr. Amadeo Cedeno Hemoglobin (Bld) [Mass/Vol] 10.0 g/dL Critically low 12.0-16.0 [facility] Comment on above: Performed By: #### C BC #### [facility] [address] [place] [address] Dr. Amadeo Cedeno IG # 0.04 10e3/ul Critically high 0.00-0.03 [facility] Comment on above: Performed By: #### C BC #### [facility] [address] [place] [address] Dr. Amadeo Cedeno IG % 0.4 % Normal 0.0-0.5 [facility] Comment on above: Performed By: #### C BC #### [facility] [address] [place] [address] Dr. Amadeo Cedeno LYMPH # 2.9 103/ul Normal 1.2-3.8 [facility] Comment on above: Performed By: #### C BC #### [facility] [address] [place] [address] Dr. Amadeo Cedeno Lymphocytes/100 WBC (Bld) 26.6 % Normal 20.5-60.0 [facility] Comment on above: Performed By: #### C BC #### [facility] [address] [place] [address] Dr. Amadeo Cedeno MANUAL DIFF REQ NO Normal [facility] Comment on above: Performed By: #### C BC #### [facility] [address] [place] [address] Dr. Amadeo Cedeno MCH (RBC) [Entitic mass] 28.2 pg Normal 26.7-34.0 [facility] Comment on above: Performed By: #### C BC #### [facility] [address] [place] [address] Dr. Amadeo Cedeno MCHC (RBC) [Mass/Vol] 33.4 g/dL Normal 29.9-35.2 [facility] Comment on above: Performed By: #### C BC #### [facility] [address] [place] [address] Dr. Amadeo Cedeno MCV (RBC) [Entitic vol] 84.2 fL Normal 81.0-99.0 [facility] Comment on above: Performed By: #### C BC #### [facility] [address] [place] [address] Dr. Amadeo Cedeno MONO # 0.7 103/ul Normal 0.3-0.8 [facility] Comment on above: Performed By: #### C BC #### [facility] [address] [place] [address] Dr. Amadeo Cedeno Monocytes/100 WBC (Bld) 6.7 % Normal 1.7-12.0 [facility] Comment on above: Performed By: #### C BC #### [facility] [address] [place] [address] Dr. Amadeo Cedeno NEUT # 7.0 103/ul Critically high 1.4-6.5 [facility] Comment on above: Performed By: #### C BC #### [facility] [address] [place] [address] Dr. Amadeo Cedeno Neutrophils/100 WBC (Bld) 65.2 % Normal 43.0-75.0 [facility] Comment on above: Performed By: #### C BC #### [facility] [address] [place] [address] Dr. Amadeo Cedeno Platelet mean volume (Bld) [Entitic vol] 10.6 fL Normal 9.5-13.5 [facility] Comment on above: Performed By: #### C BC #### [facility] [address] [place] [address] Dr. Amadeo Cedeno PLT 251 103/ul Normal 150-450 [facility] Comment on above: Performed By: #### C BC #### [facility] [address] [place] [address] Dr. Amadeo Cedeno RBC 3.55 106/ul Critically low 4.20-5.40 [facility] Comment on above: Performed By: #### C BC #### [facility] [address] [place] [address] Dr. Amadeo Cedeno WBC 10.7 103/ul Normal 4.0-11.0 [facility] Comment on above: Performed By: #### C BC #### [facility] [address] [place] [address] Dr. Amadeo Cedeno ER URINE PROFILEon 3 Bilirubin Ql (U) Negative Normal NEGATIVE [facility] Comment on above: Performed By: #### C T/NGNA #### [facility] [address] [place] [address] Dr. Amadeo Cedeno Clarity (U) CLEAR Normal CLEAR [facility] Comment on above: Performed By: #### C T/NGNA #### [facility] [address] [place] [address] Dr. Amadeo Cedeno Color (U) LT. YELLOW Normal YELLOW [facility] Comment on above: Performed By: #### C T/NGNA #### [facility] [address] [place] [address] Dr. Amadeo CHOUDHARY A micrscopic examination will be performed if indicated. Normal [facility] Comment on above: Performed By: #### C T/NGNA #### [facility] [address] [place] [address] Dr. Amadeo Cedeno Glucose Ql (U) Negative Normal NEGATIVE [facility] Comment on above: Performed By: #### C T/NGNA #### [facility] [address] [place] [address] Dr. Amadeo Cedeno Hemoglobin Ql (U) Negative Normal NEGATIVE [facility] Comment on above: Performed By: #### C T/NGNA #### [facility] [address] [place] [address] Dr. Amadoe Cedeno Ketones Ql (U) Negative Normal NEGATIVE [facility] Comment on above: Performed By: #### C T/NGNA #### [facility] [address] [place] [address] Dr. Amadeo Cedeno LEUKOCYTES Negative Normal NEGATIVE [facility] Comment on above: Performed By: #### C T/NGNA #### [facility] [address] [place] [address] Dr. Amadeo Cedeno Nitrite Ql (U) Negative Normal NEGATIVE [facility] Comment on above: Performed By: #### C T/NGNA #### [facility] [address] [place] [address] Dr. Amadeo Cedeno pH (U) 8.0 [pH] Normal 5-9 [facility] Comment on above: Performed By: #### C T/NGNA #### [facility] [address] [place] [address] Dr. Amadeo Cedeno SPEC GRAVITY 1.010 Normal 1.005-<=1.025 [facility] Comment on above: Performed By: #### C T/NGNA #### [facility] [address] [place] [address] Dr. Amadeo Cedeno UA PROTEIN Negative Normal NEGATIVE/ TRACE [facility] Comment on above: Performed By: #### C T/NGNA #### [facility] [address] [place] [address] Dr. Amadeo Cedeno UR MICRO IND NOT INDICATED Normal [facility] Comment on above: Performed By: #### C T/NGNA #### [facility] [address] [place] [address] Dr. Amadeo Cedeno Urobilinogen Qn (U) 0.2 {Janet'U}/dL Normal 0.2 - 1. 0 [facility] Comment on above: Performed By: #### C T/NGNA #### [facility] [address] [place] [address] Dr. Amadeo Cedeno PROF 14(COMP METB)on 023 Albumin [Mass/Vol] 2.5 g/dL Critically low 3.4-5.0 [facility] Comment on above: Performed By: #### C T/NGNA #### [facility] [address] [place] [address] Dr. Amadeo Cedeno Albumin/Globulin [Mass ratio] 0.7 {ratio} Normal [facility] Comment on above: Performed By: #### C T/NGNA #### [facility] [address] [place] [address] Dr. Amadeo Cedeno ALP [Catalytic activity/Vol] 117 U/L Critically high 46-116 [facility] Comment on above: Performed By: #### C T/NGNA #### [facility] [address] [place] [address] Dr. Amadeo Cedeno ALT [Catalytic activity/Vol] 14 U/L Normal 14-59 [facility] Comment on above: Performed By: #### C T/NGNA #### [facility] [address] [place] [address] Dr. Amadeo Cedeno Anion gap [Moles/Vol] 10.9 mmol/L Normal [facility] Comment on above: Performed By: #### C T/NGNA #### [facility] [address] [place] [address] Dr. Amadeo Cedeno AST [Catalytic activity/Vol] 12 U/L Critically low 15-37 [facility] Comment on above: Performed By: #### C T/NGNA #### [facility] [address] [place] [address] Dr. Amadeo Cedeno Bilirubin [Mass/Vol] 0.3 mg/dL Normal 0.2-1.0 [facility] Comment on above: Performed By: #### C T/NGNA #### [facility] [address] [place] [address] Dr. Amadeo Cedeno Calcium [Mass/Vol] 8.3 mg/dL Critically low 8.5-10.1 [facility] Comment on above: Performed By: #### C T/NGNA #### [facility] [address] [place] [address] Dr. Amadeo Cedeno Chloride [Moles/Vol] 103 mmol/L Normal 98-107 [facility] Comment on above: Performed By: #### C T/NGNA #### [facility] [address] [address] [address] Amadeo Cedeno CO2 [Moles/Vol] 24.2 mmol/L Normal 21.0-32.0 [facility] Comment on above: Performed By: #### C T/NGNA #### [facility] [address] [place] [address] Dr. Amadeo Cedeno Creatinine [Mass/Vol] 0.54 mg/dL Critically low 0.55-1.02 [facility] Comment on above: Performed By: #### C T/NGNA #### [facility] [address] [place] [address] Dr. Amadeo Cedeno EGFR-AF GHANAIAN >60 Normal >=60 [facility] Comment on above: Performed By: #### C T/NGNA #### [facility] [address] [place] [address] Dr. Amadeo Cedeno EGFR-NON AF GHANAIAN >60 Normal >=60 [facility] Comment on above: Performed By: #### C T/NGNA #### [facility] [address] [place] [address] Dr. Amadeo Cedeno Globulin (S) [Mass/Vol] 3.5 g/dL Normal [facility] Comment on above: Performed By: #### C T/NGNA #### [facility] [address] [place] [address] Dr. Amadeo Cedeno Glucose [Mass/Vol] 83 mg/dL Normal 74-106 [facility] Comment on above: Performed By: #### C T/NGNA #### [facility] [address] [place] [address] Dr. Amadeo Cedeno Potassium [Moles/Vol] 3.1 mmol/L Critically low 3.5-5.1 [facility] Comment on above: Performed By: #### C T/NGNA #### [facility] [address] [place] [address] Dr. Amadeo Cedeno Protein [Mass/Vol] 6.0 g/dL Critically low 6.4-8.2 [facility] Comment on above: Performed By: #### C T/NGNA #### [facility] [address] [place] [address] Dr. Amadeo Cedeno Sodium [Moles/Vol] 135 mmol/L Critically low 136-145 [facility] Comment on above: Performed By: #### C T/NGNA #### [facility] [address] [place] [address] Dr. Amadeo Cedeno Urea nitrogen [Mass/Vol] 6.0 mg/dL Critically low 7.0-18.0 [facility] Comment on above: Performed By: #### C T/NGNA #### [facility] [address] [place] [address] Dr. Amadeo Cedeno Urea nitrogen/Creatinine [Mass ratio] 11.1 mg/mg Normal [facility] Comment on above: Performed By: #### C T/NGNA #### [facility] [address] [place] [address] Dr. Amadeo Cedeno PROTIMEon 03-17-2023 INR Coag (PPP) [Relative time] 0.94 {INR} Normal [facility] Comment on above: Performed By: #### C T/NGNA #### [facility] [address] [place] [address] Dr. Amadeo Cedeno INR GUIDELINES SEE BELOW Normal [facility] Comment on above: Result Comment: MARK RED INR: 2.0 - 3.0 CONDITIONS NOT LISTED BELOW 2.5 - 3.5 FOR PROSTHETIC HEART VALVE REPLACEMENT 2.5 - 3.5 RECURRENT THROMBOSIS Performed By: #### C T/NGNA #### [facility] [address] [place] [address] Dr. Amadeo Cedeno PT Coag (PPP) [Time] 10.0 s Normal 9.0-11.6 [facility] Comment on above: Performed By: #### C T/NGNA #### [facility] [address] [place] [address] Dr. Amadeo Cedeno PTTon 03-17-2023 aPTT Coag (Bld) [Time] 23.1 s Normal 22.3-36.2 [facility] Comment on above: Performed By: #### C T/LILIANNA #### [facility] [address] [place] [address] Dr. Amadeo Cedeno US PREG GROWTHon 03-11-2023 US PREG GROWTH EXAMINATION: US PREG GROWTH HISTORY: Uterine size for dates discrepancy COMPARISON: No relevant comparison available. FINDINGS: Heart Rate: 154.3 bpm Amniotic Fluid Volume: 13.6 cm Number: 1.0 Position: Cephalic presentation, longitudinal lie Maximum Vertical Pocket: 4.0 cm cm 1.8 cm cm 3.2 cm cm 4.6 cm cm BIOMETRY: BPD: 8.2 cm cm; 32 weeks 6 days; 34% HC: 30.4 cmcm; 33 weeks 5 days, 25% AC: 27.3 cm cm; 31 weeks 3 days, 80% FL: 6.6 cm cm; 33 weeks 6 days; 54.9 % % EFW: 1993.9 grams, 4 lbs. 6 oz., 21% FL/AC: 24.0 FL/BPD: 80.2 HC/AC: 1.1 GESTATIONAL AGE: Age by EDC: 33 weeks 2 days ROMEO by EDC: 04/27/2023 Age by US: 33 weeks 0 days ROMEO by US: 04/29/2023 IMPRESSION: Normal interval growth Electronically authenticated by: SANJAY MARS Date: 2023-03-11 16:57 Normal [facility] CBC AUTO DIFFon 01-09-2023 BASO # 0.0 103/ul Normal 0.0-0.1 [facility] Comment on above: Performed By: #### C BC #### [facility] [address] [place] [address] Dr. Amadeo Cedeno Basophils/100 WBC (Bld) 0.4 % Normal 0.2-2.0 [facility] Comment on above: Performed By: #### C BC #### [facility] [address] [address] [address] Amadeo Cedeno EO # 0.1 103/ul Normal 0.0-0.7 [facility] Comment on above: Performed By: #### C BC #### [facility] [address] [place] [address] Dr. Amadeo Cedeno Eosinophils/100 WBC (Bld) 1.1 % Normal 0.9-7.0 [facility] Comment on above: Performed By: #### C BC #### [facility] [address] [place] [address] Dr. Amadeo Cedeno Erythrocyte distribution width (RBC) [Ratio] 13.3 % Normal 11.0-15.0 [facility] Comment on above: Performed By: #### C BC #### [facility] [address] [place] [address] Dr. Amadeo Cedeno Hematocrit (Bld) [Volume fraction] 34.6 % Critically low 36.0-48.0 [facility] Comment on above: Performed By: #### C BC #### [facility] [address] [place] [address] Dr. Amadeo Cedeno Hemoglobin (Bld) [Mass/Vol] 11.8 g/dL Critically low 12.0-16.0 [facility] Comment on above: Performed By: #### C BC #### [facility] [address] [place] [address] Dr. Amadeo Cedeno IG # 0.05 10e3/ul Critically high 0.00-0.03 [facility] Comment on above: Performed By: #### C BC #### [facility] [address] [place] [address] Dr. Amadeo Cedeno IG % 0.5 % Normal 0.0-0.5 [facility] Comment on above: Performed By: #### C BC #### [facility] [address] [place] [address] Dr. Amadeo Cedeno LYMPH # 2.0 103/ul Normal 1.2-3.8 [facility] Comment on above: Performed By: #### C BC #### [facility] [address] [place] [address] Dr. Amadeo Cedeno Lymphocytes/100 WBC (Bld) 21.0 % Normal 20.5-60.0 [facility] Comment on above: Performed By: #### C BC #### [facility] [address] [place] [address] Dr. Amadeo Ceedno MANUAL DIFF REQ NO Normal [facility] Comment on above: Performed By: #### C BC #### [facility] [address] [place] [address] Dr. Amadeo Cedeno MCH (RBC) [Entitic mass] 29.1 pg Normal 26.7-34.0 [facility] Comment on above: Performed By: #### C BC #### [facility] [address] [place] [address] Dr. Amadeo Cedeno MCHC (RBC) [Mass/Vol] 34.1 g/dL Normal 29.9-35.2 [facility] Comment on above: Performed By: #### C BC #### [facility] [address] [place] [address] Dr. Amadeo Cedeno MCV (RBC) [Entitic vol] 85.2 fL Normal 81.0-99.0 [facility] Comment on above: Performed By: #### C BC #### [facility] [address] [place] [address] Dr. Amadeo Cedeno MONO # 0.5 103/ul Normal 0.3-0.8 [facility] Comment on above: Performed By: #### C BC #### [facility] [address] [place] [address] Dr. Amadeo Cedeno Monocytes/100 WBC (Bld) 5.1 % Normal 1.7-12.0 [facility] Comment on above: Performed By: #### C BC #### [facility] [address] [place] [address] Dr. Amadeo Cedeno NEUT # 6.8 103/ul Critically high 1.4-6.5 [facility] Comment on above: Performed By: #### C BC #### [facility] [address] [address] [address] Amadeo Cedeno Neutrophils/100 WBC (Bld) 71.9 % Normal 43.0-75.0 [facility] Comment on above: Performed By: #### C BC #### [facility] [address] [address] [address] Amadeo Cedeno Platelet mean volume (Bld) [Entitic vol] 9.8 fL Normal 9.5-13.5 [facility] Comment on above: Performed By: #### C BC #### [facility] [address] [address] [address] Amadeo Cedeno PLT 294 103/ul Normal 150-450 [facility] Comment on above: Performed By: #### C BC #### [facility] [address] [place] [address] Dr. Amadeo Cedeno RBC 4.06 106/ul Critically low 4.20-5.40 [facility] Comment on above: Performed By: #### C BC #### [facility] [address] [address] [address] Amadeo Cedeno WBC 9.4 103/ul Normal 4.0-11.0 [facility] Comment on above: Performed By: #### C BC #### [facility] [address] [place] [address] Dr. Amadeo Cedeno GLUCOSE - 1HRon 01-09-2023 Glucose [Mass/Vol] 94 mg/dL Normal 74-106 [facility] Comment on above: Performed By: #### G LU1HR #### [facility] [address] [place] [address] Dr. Amadeo Cedeno US PREG ANATOMY SINGLEon US PREG ANATOMY SINGLE EXAMINATION: US PREG ANATOMY SINGLE HISTORY: anatomy study COMPARISON: No relevant comparison available. TECHNIQUE: Transabdominal sonographic examination was performed for obstetrical and evaluation. FINDINGS: Number: 1 Heart Rate: 145.0 bpm H.B. /min Amniotic Fluid Volume: Subjectively normal position: Cephalic presentation, longitudinal lie Placental Location: Anterior, placental edge is 5.0 cm from the cervical os Cervix Length: 3.8 cm, closed Normally visualized anatomy: Cerebellum, choroid plexus, cisterna magna, lateral cerebral ventricles, orbits, midline falx, hard palate, four-chamber heart, RVOT, LVOT, stomach, kidneys, bladder, umbilical cord insertion into the abdomen, three-vessel cord, cervical spine, thoracic spine, lumbar spine, sacral spine, right upper extremity, left upper extremity, right lower extremity, left lower extremity Suboptimally visualized anatomy: None BIOMETRY: BPD: 4.7 cm 20 weeks 1 days , 35% HC: 17.6 cm 20 weeks 1 days, 28% AC: 14.5 cm 19 weeks 6 days, 25% FL: 3.4 cm 20 weeks 5 days, 50% EFW:338.8 grams; 12 ounces, +/- 2 ounces, 33% FL/AC: 23.3 FL/BPD: 72.8 HC/AC: 1.2 GESTATIONAL AGE: Age by EDC: 20 weeks 3 days ROMEO by EDC: 04/27/2023 Age by current US: 20 weeks 2 days ROMEO by current US: 04/28/2023 IMPRESSION: Normal anatomy scan *Reference: [employer] Practice Guideline for the performance of Obstetric Ultrasound Examinations, August 09, 2007. Electronically authenticated by: SANJAY MARS Date: 2022-12-11 16:01 Normal [facility] AFP MATERNAL FOR SPINA BIFID Aon 11-27-2022 AFP MoM 0.78 Normal [facility] Comment on above: Performed By: #### C T/NGNA #### [facility] [address] [address] [address] Amadeo Cedeno AFP Value 39.4 ng/mL Normal [facility] Comment on above: Performed By: #### C T/NGNA #### [facility] [address] [address] [address] Amadeo Cedeno AFP, Serum for Spina Bifida Report Normal [facility] Comment on above: Performed By: #### C T/NGNA #### [facility] [address] [address] [address] Amadeo Cedeno Comment Comment Normal [facility] Comment on above: Result Comment: Hesham Yepez, Ph.D., [facility] Director . References: Available Upon Request. . Multiples Of Median Cutoffs For AFP Elevations Orr 2.5 Black 2.8 IDD 2.0 Twins 4.5 Abbreviation Definitions IDD - Insulin Dep Diabetes OSBR - Open Spina Bifida Risk . For further inquiries contact [facility] at [phone]. . This test was developed and its performance characteristics determined by [facility]. It has not been cleared or approved by the Food and Drug Administration. Performed By: #### C T/NGNA #### [facility] [address] [address] [address] Amadeo Steinberg Age Collection Date 18.[address] [facility] Comment on above: Performed By: #### C T/NGNA #### [facility] [address] [place] [address] Dr. Amadeo Cedeno Gestat, Age Based on ROMEO Normal [facility] Comment on above: Result Comment: 04/09 Recalculations are not recommended when gestational dating by LMP and ultrasound are within 10 days. Performed By: #### C T/NGNA #### [facility] [address] [address] [address] Amadeo Cedeno Insulin Dep Diabetes No Normal [facility] Comment on above: Performed By: #### C T/NGNA #### [facility] [address] [place] [address] Dr. Amadeo Cedeno Interpretation Comment Normal [facility] Comment on above: Result Comment: Inte rpretation: Screen Negative . This result is screen negative for OSB. The AFP MoM calculated is based on the gestational age provided. MS-AFP can identify up to 80% of open neural tube defects. Closed neural tube defects and some open defects may not be detected by this test. This test does not screen for Down Syndrome or Trisomy 18. If screening for Down Syndrome or Trisomy 18 is desired, contact [facility] to discuss available options. The [employer] [employer] recommends amniocentesis be offered to women age 35 and older. Performed By: #### C T/NGNA #### [facility] [address] [place] [address] Dr. Amadeo Cedeno M[age]OMEO 23.[address] [facility] Comment on above: Performed By: #### C T/NGNA #### [facility] [address] [address] [address] Amadeo Cedeno Multiple Gestation No Normal [facility] Comment on above: Performed By: #### C T/NGNA #### [facility] [address] [address] [address] Amadeo Cedeno OSBR Risk [place] [id number] [facility] Comment on above: Performed By: #### C T/NGNA #### [facility] [address] [address] [address] Amadeo Cedeno PDF . [facility] Comment on above: Performed By: #### C T/NGNA #### [facility] [address] [place] [address] Dr. Amadeo Cedeno Race [facility] Comment on above: Performed By: #### C T/NGNA #### [facility] [address] [address] [address] Amadeo Cedeno Test Results: Negative [facility] Comment on above: Performed By: #### C T/NGNA #### [facility] [address] [place] [address] Dr. Amadeo Cedeno PAP ACOG PANEL 2: 21 to 29on 11-25-2022 . . [facility] Comment on above: Performed By: #### C T/NGNA #### [facility] [address] [address] [address] Amadeo Cedeno Age Gdln ACOG Testing 20- [facility] Comment on above: Performed By: #### C T/NGNA #### [facility] [address] [place] [address] Dr. Amadeo Cedeno DIAGNOSIS: Comment [facility] Comment on above: Result Comment: NEGA TIVE FOR INTRAEPITHELIAL LESION OR MALIGNANCY. Performed By: #### C T/NGNA #### [facility] [address] [place] [address] Dr. Amadeo Cedeno Methodology: Comment [facility] Comment on above: Result Comment: This liquid based ThinPrep(R) pap test was screened with the use of an image guided system. Performed By: #### C T/NGNA #### [facility] [address] [place] [address] Dr. Amadeo Cedeno Note: Comment Normal [facility] Comment on above: Result Comment: The Pap smear is a screening test designed to aid in the detection of premalignant and malignant conditions of the uterine cervix. It is not a diagnostic procedure and should not be used as the sole means of detecting cervical cancer. Both false-positive and false-negative reports do occur. . Performed By: #### C T/NGNA #### [facility] [address] [place] [address] Dr. Amadeo Cedeno Performed by: Comment Normal [facility] Comment on above: Result Comment: Ron Corona, [employer] Network Architect (ASCP) Performed By: #### C T/NGNA #### [facility] [address] [place] [address] Dr. Amadeo Cedeno Reflex Criteria: Comment Normal [facility] Comment on above: Result Comment: The HPV DNA reflex criteria were not met with this specimen result therefore, no HPV testing was performed. . Performed By: #### C T/NGNA #### [facility] [address] [place] [address] Dr. Amadeo Cedeno Specimen adequacy: Comment Normal [facility] Comment on above: Result Comment: Sati sfactory for evaluation. Endocervical and/or squamous metaplastic cells (endocervical component) are present. Performed By: #### C T/NGNA #### [facility] [address] [place] [address] Dr. Amadeo Cedeno CHLAMYDIA/GONOCOCCUS JUAN (SW AB/URINE/PAPon 11-24-2022 Chlamydia trachomatis, JUAN Negative Normal Negative [facility] Comment on above: Performed By: #### C T/NGNA #### [facility] [address] [place] [address] Dr. Amadeo Cedeno Neisseria gonorrhoeae, JUAN Negative Normal Negative [facility] Comment on above: Performed By: #### C T/NGNA #### [facility] [address] [place] [address] Dr. Amadeo Cedeno VAGINITIS/VAGINOSIS DNA PROB Benson 11-22-2022 Janis species Negative Normal Negative [facility] Comment on above: Performed By: #### C BC #### [facility] [address] [place] [address] Dr. Amadeo Cedeno Gardnerella vaginalis Negative Normal Negative [facility] Comment on above: Performed By: #### C BC #### [facility] [address] [place] [address] Dr. Amadeo Cedeno Trichomonas vaginalis Negative Normal Negative [facility] Comment on above: Performed By: #### C BC #### [facility] [address] [place] [address] Dr. Amadeo Cedeno CBC AUTO DIFFon 10-12-2022 BASO # 0.1 103/ul Normal 0.0-0.1 [facility] Comment on above: Performed By: #### C BC #### [facility] [address] [place] [address] Dr. Amadeo Cedeno Basophils/100 WBC (Bld) 0.5 % Normal 0.2-2.0 [facility] Comment on above: Performed By: #### C BC #### [facility] [address] [place] [address] Dr. Amadeo Cedeno EO # 0.1 103/ul Normal 0.0-0.7 [facility] Comment on above: Performed By: #### C BC #### [facility] [address] [place] [address] Dr. Amadeo Cedeno Eosinophils/100 WBC (Bld) 1.1 % Normal 0.9-7.0 [facility] Comment on above: Performed By: #### C BC #### [facility] [address] [place] [address] Dr. Amadeo Cedeno Erythrocyte distribution width (RBC) [Ratio] 12.3 % Normal 11.0-15.0 [facility] Comment on above: Performed By: #### C BC #### [facility] [address] [place] [address] Dr. Amadeo Cedeno Hematocrit (Bld) [Volume fraction] 32.9 % Critically low 36.0-48.0 [facility] Comment on above: Performed By: #### C BC #### [facility] [address] [place] [address] Dr. Amadeo Cedeno Hemoglobin (Bld) [Mass/Vol] 11.7 g/dL Critically low 12.0-16.0 [facility] Comment on above: Performed By: #### C BC #### [facility] [address] [place] [address] Dr. Amadeo Cedeno IG # 0.03 10e3/ul Normal 0.00-0.03 [facility] Comment on above: Performed By: #### C BC #### [facility] [address] [place] [address] Dr. Amadeo Cedeno IG % 0.3 % Normal 0.0-0.5 [facility] Comment on above: Performed By: #### C BC #### [facility] [address] [place] [address] Dr. Amadeo Cedeno LYMPH # 2.5 103/ul Normal 1.2-3.8 [facility] Comment on above: Performed By: #### C BC #### [facility] [address] [place] [address] Dr. Amadeo Cedeno Lymphocytes/100 WBC (Bld) 27.0 % Normal 20.5-60.0 [facility] Comment on above: Performed By: #### C BC #### [facility] [address] [place] [address] Dr. Amadeo Cedeno MANUAL DIFF REQ NO Normal [facility] Comment on above: Performed By: #### C BC #### [facility] [address] [place] [address] Dr. Amadeo Cedeno MCH (RBC) [Entitic mass] 29.0 pg Normal 26.7-34.0 [facility] Comment on above: Performed By: #### C BC #### [facility] [address] [place] [address] Dr. Amadeo Cedeno MCHC (RBC) [Mass/Vol] 35.6 g/dL Critically high 29.9-35.2 [facility] Comment on above: Performed By: #### C BC #### [facility] [address] [place] [address] Dr. Amadeo Cedeno MCV (RBC) [Entitic vol] 81.6 fL Normal 81.0-99.0 [facility] Comment on above: Performed By: #### C BC #### [facility] [address] [place] [address] Dr. Amadeo Cedeno MONO # 0.4 103/ul Normal 0.3-0.8 [facility] Comment on above: Performed By: #### C BC #### [facility] [address] [place] [address] Dr. Amadeo Cedeno Monocytes/100 WBC (Bld) 3.9 % Normal 1.7-12.0 [facility] Comment on above: Performed By: #### C BC #### [facility] [address] [place] [address] Dr. Amadeo Cedeno NEUT # 6.2 103/ul Normal 1.4-6.5 [facility] Comment on above: Performed By: #### C BC #### [facility] [address] [place] [address] Dr. Amadeo Cedeno Neutrophils/100 WBC (Bld) 67.2 % Normal 43.0-75.0 [facility] Comment on above: Performed By: #### C BC #### [facility] [address] [place] [address] Dr. Amadeo Cedeno Platelet mean volume (Bld) [Entitic vol] 10.0 fL Normal 9.5-13.5 [facility] Comment on above: Performed By: #### C BC #### [facility] [address] [place] [address] Dr. Amadeo Cedeno PLT 295 103/ul Normal 150-450 [facility] Comment on above: Performed By: #### C BC #### [facility] [address] [place] [address] Dr. Amadeo Cedeno RBC 4.03 106/ul Critically low 4.20-5.40 [facility] Comment on above: Performed By: #### C BC #### [facility] [address] [place] [address] Dr. Amadeo Cedeno WBC 9.2 103/ul Normal 4.0-11.0 [facility] Comment on above: Performed By: #### C BC #### [facility] [address] [place] [address] Dr. Amadeo Cedeno ER URINE PROFILEon 2 Bilirubin Ql (U) Negative Normal NEGATIVE [facility] Comment on above: Performed By: #### Emeli ORTEZR UMICRO #### [facility] [address] [place] [address] Dr. Amadeo Cedeno Clarity (U) CLEAR Normal CLEAR [facility] Comment on above: Performed By: #### Emeli CARUSO UMICRO #### [facility] [address] [place] [address] Dr. Amadeo Cedeno Color (U) LT. YELLOW Normal YELLOW [facility] Comment on above: Performed By: #### Emeli CARUSO UMICRO #### [facility] [address] [place] [address] Dr. Amadeo CHOUDHARY A micrscopic examination will be performed if indicated. Normal [facility] Comment on above: Performed By: #### Emeli CARUSO UMICRO #### [facility] [address] [place] [address] Dr. Amadeo Cedeno Glucose Ql (U) Negative Normal NEGATIVE [facility] Comment on above: Performed By: #### Emeli RUR UMICRO #### [facility] [address] [place] [address] Dr. Amadeo Cedeno Hemoglobin Ql (U) SMALL Abnormal NEGATIVE [facility] Comment on above: Performed By: #### E RUR, UMICRO #### [facility] [address] [place] [address] Dr. Amadeo Cedeno Ketones Ql (U) Negative Normal NEGATIVE [facility] Comment on above: Performed By: #### TETE VELEZ #### [facility] [address] [place] [address] Dr. Amadeo Cedeno LEUKOCYTES Negative Normal NEGATIVE [facility] Comment on above: Performed By: #### TETE VELEZ #### [facility] [address] [place] [address] Dr. Amadeo Cedeno Nitrite Ql (U) Negative Normal NEGATIVE [facility] Comment on above: Performed By: #### TETE VELEZ #### [facility] [address] [place] [address] Dr. Amadeo Cedeno pH (U) 6.0 [pH] Normal 5-9 [facility] Comment on above: Performed By: #### TETE VELEZ #### [facility] [address] [place] [address] Dr. Amadeo Cedeno SPEC GRAVITY 1.010 Normal 1.005-<=1.025 [facility] Comment on above: Performed By: #### TETE VELEZ #### [facility] [address] [place] [address] Dr. Amadeo Cedeno UA PROTEIN Negative Normal NEGATIVE/ TRACE [facility] Comment on above: Performed By: #### TETE VELEZ #### [facility] [address] [place] [address] Dr. Amadeo Cedeno UR MICRO IND INDICATED Normal [facility] Comment on above: Performed By: #### TETE VELEZ #### [facility] [address] [place] [address] Dr. Amadeo Cedeno Urobilinogen Qn (U) 0.2 {Janet'U}/dL Normal 0.2 - 1. 0 [facility] Comment on above: Performed By: #### TETE VELEZ #### [facility] [address] [place] [address] Dr. Amadeo Cedeno PREG QUANT HCGon 10-12-2022 HCG QUANT [id number] mIU/mL Normal [facility] Comment on above: Performed By: #### P REGQNT #### [facility] [address] [place] [address] Dr. Amadeo Cedeno HCG RANGE SEE BELOW Normal [facility] Comment on above: Result Comment: 5-50 0.2-1 WEEK 50-500 1-2 WEEKS 100-5,000 2-3 WEEKS 500-10,000 3-4 WEEKS 1,000-50,000 4-5 WEEKS 10,000-100,000 5-6 WEEKS 15,000-200,000 6-8 WEEKS 10,000-100,000 2-3 MONTHS Performed By: #### P REGQNT #### [facility] [address] [place] [address] Dr. Amadeo Cedeno URINE MICROSCOPIC ONLYon BACTERIA NONE SEEN Normal NONE SEEN [facility] Comment on above: Performed By: #### Emeli CARUSO UMICRO #### [facility] [address] [place] [address] Dr. Amadeo Cedeno Bacteria identified Cx Nom (U) NOT INDICATED Normal [facility] Comment on above: Performed By: #### Emeli CARUSO UMICRO #### [facility] [address] [place] [address] Dr. Amadeo Cedeno CAST NONE SEEN Normal NONE SEEN [facility] Comment on above: Performed By: #### Emeli CARUSO UMICRO #### [facility] [address] [place] [address] Dr. Amadeo Cedeno Crystals LM Nom (Urine sed) NONE SEEN Normal NONE SEEN [facility] Comment on above: Performed By: #### Emeli CARUSO UMICRO #### [facility] [address] [place] [address] Dr. Amadeo Cedeno Epithelial cells LM Ql (Urine sed) FEW Abnormal NONE SEEN /RARE [facility] Comment on above: Performed By: #### Emeli CARUSO UMICRO #### [facility] [address] [place] [address] Dr. Amadeo Cedeno MUCOUS TRACE Abnormal NONE SEEN [facility] Comment on above: Performed By: #### Emeli CARUSO UMICRO #### [facility] [address] [place] [address] Dr. Amadeo Cedeno RBC 2-5 Abnormal 0-2 [facility] Comment on above: Performed By: #### E TETE CARUSO #### [facility] [address] [address] [address] Amadeo Cedeno WBC NONE SEEN Normal NONE SEEN [facility] Comment on above: Performed By: #### E ETTE CARUSO #### [facility] [address] [address] [address] Amadeo Cedeno US PREG <14 WKSon 10-12-2022 US PREG <14 WKS EXAMINATION: US PREG <14 WKS HISTORY: Vaginal bleeding complicating early COMPARISON: Ultrasound transvaginal 09/25/2022 FINDINGS: GESTATIONAL SAC: Present and normal appearing. YOLK SAC: Absent POLE: Present and normal appearing. CARDIAC: 172 bpm UTERUS: Normal size and appearance. OVARIES: Right: Not seen. Left: Normal. CERVIX: 3.2 cm in length and closed. CUL-DE-SAC: Normal. OTHER: None. AGE BY LMP: 11 weeks 5 days ROMEO BY LMP: 04/28/2023 AGE BY US CRL: 11 weeks 6 days ROMEO BY US CRL: 04/27/2023 IMPRESSION: 1. Single live intrauterine . No suspicious findings to suggest impending . Electronically authenticated by: LIYA MUNOZ Date: 2022-10-12 19:08 Normal [facility] HEP B SURFACE ANTIGEN SCREEN on 10-10-2022 HBsAg Screen Negative Normal Negative [facility] Comment on above: Performed By: #### C T/NGNA #### [facility] [address] [place] [address] Dr. Amadeo Cedeno HEPATITIS C VIRUS AB W/ REFL EX QUANTon 10-10-2022 HCV AB 0.2 s/co ratio Normal 0.0-0.9 [facility] Comment on above: Performed By: #### H CVPCRR #### [facility] [address] [place] [address] Dr. Amadeo Cedeno Interpretation: Comment Normal [facility] Comment on above: Result Comment: Nega tive Not infected with HCV, unless recent infection is suspected or other evidence exists to indicate HCV infection. Performed By: #### H CVPCRR #### [facility] [address] [place] [address] Dr. Amadeo Cedeno HIV 1 AND 2 WITH REFLEXon HIV Screen 4th Generation wRfx Non-Reactive Normal Non Reactive [facility] Comment on above: Result Comment: HIV Negative HIV-1/HIV-2 antibodies and HIV-1 p24 antigen were NOT detected. There is no laboratory evidence of HIV infection. Performed By: #### C BC #### [facility] [address] [place] [address] Dr. Amadeo Cedeno RPR QUANTon 10-10-2022 Rapid Plasma Reagin, Quant Non-Reactive Normal NonRea<1:1 [facility] Comment on above: Result Comment: Plea se Note: This test does not meet current guidelines for screening and diagnosis of syphilis. This test is intended for following treatment response in patients being treated for syphilis infection. To screen for syphilis infection, a reflex cascade that includes both RPR and a treponema-specific assay should be utilized, such as Treponema pallidum (Syphilis) Screening Sweet (398388) or Rapid Plasma Reagin (RPR) Test With Reflex to Quantitative RPR and Confirmatory Treponema pallidum Antibodies ([id number]). Performed By: #### R PRQ #### [facility] [address] [place] [address] Dr. Amadeo Cedeno RUBELLA AB IGGon 10-10-2022 Rubella Antibodies, IgG 1.04 index Normal Immune >0.99 [facility] Comment on above: Result Comment: Non- immune <0.90 Equivocal 0.90 - 0.99 Immune >0.99 Performed By: #### C T/NGNA #### [facility] [address] [place] [address] Dr. Amadeo Cedeno CBC AUTO DIFFon 10-09-2022 BASO # 0.1 103/ul Normal 0.0-0.1 [facility] Comment on above: Performed By: #### C BC #### [facility] [address] [place] [address] Dr. Amadeo Cedeno Basophils/100 WBC (Bld) 1.1 % Normal 0.2-2.0 [facility] Comment on above: Performed By: #### C BC #### [facility] [address] [place] [address] Dr. Amadeo Cedeno EO # 0.1 103/ul Normal 0.0-0.7 [facility] Comment on above: Performed By: #### C BC #### [facility] [address] [place] [address] Dr. Amadeo Cedeno Eosinophils/100 WBC (Bld) 1.0 % Normal 0.9-7.0 [facility] Comment on above: Performed By: #### C BC #### [facility] [address] [place] [address] Dr. Amadeo Cedeno Erythrocyte distribution width (RBC) [Ratio] 12.4 % Normal 11.0-15.0 [facility] Comment on above: Performed By: #### C BC #### [facility] [address] [place] [address] Dr. Amadeo Cedeno Hematocrit (Bld) [Volume fraction] 36.5 % Normal 36.0-48.0 [facility] Comment on above: Performed By: #### C BC #### [facility] [address] [place] [address] Dr. Amadeo Cedeno Hemoglobin (Bld) [Mass/Vol] 12.8 g/dL Normal 12.0-16.0 [facility] Comment on above: Performed By: #### C BC #### [facility] [address] [place] [address] Dr. Amadeo Cedeno IG # 0.02 10e3/ul Normal 0.00-0.03 [facility] Comment on above: Performed By: #### C BC #### [facility] [address] [place] [address] Dr. Amadeo Cedeno IG % 0.2 % Normal 0.0-0.5 [facility] Comment on above: Performed By: #### C BC #### [facility] [address] [place] [address] Dr. Amadeo Cedeno LYMPH # 2.0 103/ul Normal 1.2-3.8 [facility] Comment on above: Performed By: #### C BC #### [facility] [address] [place] [address] Dr. Amadeo Cedeno Lymphocytes/100 WBC (Bld) 24.0 % Normal 20.5-60.0 [facility] Comment on above: Performed By: #### C BC #### [facility] [address] [place] [address] Dr. Amadeo Cedeno MANUAL DIFF REQ NO Normal [facility] Comment on above: Performed By: #### C BC #### [facility] [address] [place] [address] Dr. Amadeo Cedeno MCH (RBC) [Entitic mass] 28.9 pg Normal 26.7-34.0 [facility] Comment on above: Performed By: #### C BC #### [facility] [address] [place] [address] Dr. Amadeo Cedeno MCHC (RBC) [Mass/Vol] 35.1 g/dL Normal 29.9-35.2 [facility] Comment on above: Performed By: #### C BC #### [facility] [address] [place] [address] Dr. Amadeo Cedeno MCV (RBC) [Entitic vol] 82.4 fL Normal 81.0-99.0 [facility] Comment on above: Performed By: #### C BC #### [facility] [address] [place] [address] Dr. Amadeo Cedeno MONO # 0.3 103/ul Normal 0.3-0.8 [facility] Comment on above: Performed By: #### C BC #### [facility] [address] [place] [address] Dr. Amadeo Cedeno Monocytes/100 WBC (Bld) 4.0 % Normal 1.7-12.0 [facility] Comment on above: Performed By: #### C BC #### [facility] [address] [place] [address] Dr. Amadeo Cedeno NEUT # 5.7 103/ul Normal 1.4-6.5 [facility] Comment on above: Performed By: #### C BC #### [facility] [address] [address] [address] Amadeo Cedeno Neutrophils/100 WBC (Bld) 69.7 % Normal 43.0-75.0 [facility] Comment on above: Performed By: #### C BC #### [facility] [address] [address] [address] Amadeo Cedeno Platelet mean volume (Bld) [Entitic vol] 10.7 fL Normal 9.5-13.5 [facility] Comment on above: Performed By: #### C BC #### [facility] [address] [address] [address] Amadeo Cedeno PLT 312 103/ul Normal 150-450 [facility] Comment on above: Performed By: #### C BC #### [facility] [address] [place] [address] Dr. Amadeo Cedeno RBC 4.43 106/ul Normal 4.20-5.40 [facility] Comment on above: Performed By: #### C BC #### [facility] [address] [place] [address] Dr. Amadeo Cedeno WBC 8.2 103/ul Normal 4.0-11.0 [facility] Comment on above: Performed By: #### C BC #### [facility] [address] [place] [address] Dr. Amadeo Cedeno CULTURE URINEon 10-09-2022 CULTURE URINE Culture Observations: LIGHT GROWTH OF MIXED GENITAL CHICHI. NO POTENTIAL PATHOGENS SEEN. Normal [facility] Comment on above: Performed By: #### TETE VELEZ #### [facility] [address] [place] [address] Dr. Amadeo Cedeno GLYCOHEMOGLOBIN A1Con 2021 ADA RECOMMENDATION SEE BELOW Normal [facility] Comment on above: Result Comment: ADA RECOMMENDED LIMIT 4.0 - 6.0 ADA THERAPEUTIC TARGET < 7.0 ACTION SUGGESTED > 7.0 Performed By: #### C BC #### [facility] [address] [place] [address] Dr. Amadeo Cedeno Glucose [Mass/Vol] 97 mg/dL Normal [facility] Comment on above: Performed By: #### C BC #### [facility] [address] [place], [place] [address] Dr. Amadeo Cedeno HbA1c (Bld) [Mass fraction] 5.0 % Normal 4.5-6.2 [facility] Comment on above: Performed By: #### C BC #### [facility] [address] [place], [place] [address] Dr. Amadeo Cedeno TYPE AND SCREENon 10-09-2022 TYPE AND SCREEN Negative Normal [facility] Comment on above: Performed By: #### E RUR, UMICRO #### [facility] [address] [place], [place] [address] Dr. Amadeo Cedeno US PREG TVon 09-25-2022 US PREG TV EXAMINATION: US PREG TV HISTORY: Missed period COMPARISON: No relevant comparison available. FINDINGS: GESTATIONAL SAC: Present and normal appearing. YOLK SAC: Present and normal appearing. POLE: Present and normal appearing. CARDIAC: Present. UTERUS: Normal size and appearance. OVARIES: Right: Normal. Left: Normal. CERVIX: 3.5 cm in length and closed. CUL-DE-SAC: Normal. OTHER: None. AGE BY LMP: 8 weeks 5 days ROMEO BY LMP: 05/02/2023 AGE BY US CRL: 9 weeks 3 days ROMEO BY US CRL: 04/27/2023 IMPRESSION: 1. Single live intrauterine . Electronically authenticated by: LIYA MUNOZ Date: 2022-09-25 15:03 Normal [facility] US PELVIS AND TRANSVAGon US PELVIS AND TRANSVAG EXAMINATION: US PELVIS AND TRANSVAG HISTORY: Vaginal discharge for 3 months COMPARISON: No relevant comparison available. TECHNIQUE: Transabdominal and transvaginal sonographic examination. FINDINGS: UTERUS: Normal size and appearance. Uterus size: 7.8 x 3.5 x 5.3 cm ENDOMETRIUM: Normal homogeneous appearance. Endometrial thickness: 11 mm RIGHT OVARY: Contains numerous 4 mm size follicles in a peripheral distribution. Duplex Doppler demonstrates normal waveform and flow; resistive index 0.4. Ovary size: 3.0 x 2.8 x 2.7 cm LEFT OVARY: Contains several small follicles. Duplex Doppler demonstrates normal waveform and flow; resistive index 0.5. Ovary size: 2.7 x 2.5 x 2.3 cm CUL-DE-SAC: Unremarkable. No significant free fluid. BLADDER: Unremarkable. OTHER: None. IMPRESSION: 1. No specific findings to account for patient's symptoms. 2. Numerous peripherally located small follicles within right ovary; nonspecific, but this can be seen with polycystic ovarian syndrome. Unremarkable left ovary. Electronically authenticated by: LIYA MUNOZ Date: 2022-08-07 13:59 Normal [facility] CHLAMYDIA/GONOCOCCUS JUAN (SW AB/URINE/PAPon 07-18-2022 Chlamydia trachomatis, JUAN Negative Normal Negative [facility] Comment on above: Performed By: #### TETE VELEZ #### [facility] [address] [place] [address] Dr. Amadeo Cedeno Neisseria gonorrhoeae, JUAN Negative Normal Negative [facility] Comment on above: Performed By: #### TYLER VELEZRO #### [facility] [address] [place] [address] Dr. Amadeo Cedeno VAGINITIS/VAGINOSIS DNA PROB Benson 07-18-2022 Janis species Negative Normal Negative [facility] Comment on above: Performed By: #### C T/NGNA #### [facility] [address] [place] [address] Dr. Amadeo Cedeno Gardnerella vaginalis Negative Normal Negative [facility] Comment on above: Performed By: #### C T/NGNA #### [facility] [address] [place] [address] Dr. Amadeo Cedeno Trichomonas vaginalis Negative Normal Negative [facility] Comment on above: Performed By: #### C T/NGNA #### [facility] [address] [place] [address] Dr. Amadeo Cedeno Vital Signs Date Time Vital Sign Value Performing Clinician Facility 08-30-2024 14:05-0400 Body height 165.1 cm Arielle MOSCOSO Work Phone: [facility] 08-30-2024 14:05-0400 Body mass index (BMI) [Ratio] 21.03 kg/m2 Arielle MOSCOSO Work Phone: [facility] 08-30-2024 14:05-0400 Body temperature 97.81 [degF] Arielle MOSCOSO Work Phone: [facility] 08-30-2024 14:05-0400 Body weight 57.34 kg Arielle MOSCOSO Work Phone: [facility] 08-30-2024 14:05-0400 Diastolic blood pressure 68 mm[Hg] Arielle Oakley APRN-KATHLEEN Work Phone: [facility] 08-30-2024 14:05-0400 Heart rate 68 /min Arielle MOSCOSO Work Phone: [facility] 08-30-2024 14:05-0400 SaO2% (BldA) [Mass fraction] 97 % Arielle MOSCOSO Work Phone: [facility] 08-30-2024 14:05-0400 Systolic blood pressure 100 mm[Hg] Arielle Oakley APRN-KATHLEEN Work Phone: [facility] 09-26-2023 10:15-0500 Body height 165.1 cm Carrie Sahni Other [facility] Other 09-26-2023 10:15-0500 Body mass index (BMI) [Ratio] 24.23 kg/m2 Carrie Sahni Other [facility] Other 09-26-2023 10:15-0500 Body temperature 98.4 [degF] Carrie Sahni Other [facility] Other 09-26-2023 10:15-0500 Body weight 66.04 kg Carrie Sahni Other [facility] Other 09-26-2023 10:15-0500 Respiratory rate 18 /min Carrie Sahni Other [facility] Other 09-26-2023 10:15-0500 SaO2% (BldA) [Mass fraction] 97 % Carrie Sahni Other [facility] Other 11-27-2022 16:08-0500 Body weight 58.[address] ERIC BRITO . [facility] Comment on above: Performed By: #### CT/NGNA #### [facility] [address] [place] [address] Dr. Amadeo Cedeno Encounters Encounter Date Encounter Type Care Provider Facility Start: 08-30-2024 End: 08-30-2024 Office outpatient new 30 minutes Arielle Oakley CAD OPERATOR-WINDOWS [employer]PLICATION PACKAGER Work Phone: [facility] Comment on above: Generalized anxiety disorder (Primary Dx) Start: 11-24-2023 End: 11-24-2023 ambulatory ERIC BRITO Not Available Start: 09-26-2023 End: 09-26-2023 ambulatory Carrie Sahni Other [facility] Other Start: 09-26-2023 Office outpatient ne w 30 minutes Carrie Sahni [facility] Start: 04-07-2023 End: 04-07-[address] ERIC BRITO . Facility:[facility] Start: 04-02-2023 End: 04-02-[address] ERIC BRITO . Facility:[facility] Start: 03-17-2023 End: 03-17-[address] DOCTOR CLAY Facility:[facility] Start: 03-11-2023 End: 03-12-[address] ERIC BRITO . Facility:[facility] Start: 01-09-2023 End: 01-10-[address] ERIC BRITO . Facility:[facility] Start: 12-11-2022 End: 12-12-[address] ERIC BRITO . Facility:[facility] Start: 11-25-2022 End: 11-26-[address] ERIC BRITO . Facility:[facility] Start: 11-20-2022 End: 11-20-[address] ERIC BRITO . Facility:[facility] Start: 10-12-2022 End: 10-12-[address] DOCTOR CLAY Facility:[facility] Start: 10-09-2022 End: 10-10-[address] ERIC BRITO . Facility:[facility] Start: 09-25-2022 End: 09-26-[address] ERIC BRITO . Facility:[facility] Start: 08-07-2022 End: 08-08-[address] ERIC BRITO . Facility:[facility] Start: 07-15-2022 End: 07-15-[address] ERIC BRITO . Facility: Procedures Date Procedure Procedure Detail Performing Clinician Start: 08-30-2024 Adult depression screening assessment Arielle Oakley APRN-WINDOWS APPLICATION PACKAGER Work Phone: Plan of Treatment Date Care Activity Detail Author Start: 03-01-2025 End: 03-01-2025 Patient encounter procedure 03/01/2025 1:00 PM EDT [facility] [address] [place] [id number] [facility] [address] [place] [address] [facility] Start: 07-10-2024 Influenza vaccination Influenza Vacc ine [facility] Start: 02-28-2023 Adult BMI Screening Adult BMI Screen ing [facility] Start: 02-14-2020 Screening for malign ant neoplasm of cervix Pap Smear [facility] Start: 2018 DTaP,Tdap and Td Vaccines (1 - Tdap) DTaP,Tdap and Td Vaccines (1 - Tdap) [facility] Start: 2011 Depression Screening Depression Scre ening [facility] Start: 2011 Tobacco Screening Tobacco Screening [facility] Payers Date Payer Category Payer Commercial Managed C are - POS [employer] [id number] 1999 Unknown [id number]. 2.593 1999 Unknown [id number] [id number]. 2.593 1999 Unknown [id number] 2.16.840.1.117760.3.579. 2.593 1999 Unknown [id number] 2.16.840.1.301527.3.579. 2.593 1999 Unknown [id number] 2.16.840.1.451718.3.579. 2.593 1999 Unknown [id number] 2.16.840.1.644961.3.579. 2.593 1999 Unknown [id number] 2.16.840.1.536304.3.579. 2.593 1999 Unknown [id number] 2.16.840.1.682487.3.579. 2.593 1999 Unknown [id number] 2.16.840.1.336969.3.579. 2.593 1999 Unknown [id number] 2.16.840.1.516732.3.579. 2.593 1999 Unknown [id number] 2.16.840.1.431568.3.579. 2.593 1999 Unknown [id number] 2.16.840.1.662859.3.579. 2.593 1999 Unknown [id number] 2.16.840.1.573174.3.579. 2.593 1999 Unknown [id number] [id number]. 2.1259 1959 Private Health Insurance [id number] Private Health Insurance [id number] 1959 Unknown [id number] Social History Date Type Detail Facility Unknown if ever smoked [facility] [employer] Other Start: 08-30-2024 Sex Assigned At [facility] [employer] Other Start: 08-30-2024 Tobacco smoking stat [facility] Never smoked tobacco [facility] Start: 08-30-2024 Tobacco use and exposure Smokeless tobacco non-user [facility] Start: 08-30-2024 Alcoholic beverage intake Ex-drinker (finding) [facility] Start: 08-30-2024 History of Social function [facility] Adolescent depressio n screening assessment 6 [facility] Start: 1999 Sex assigned at Not on file P [facility] Start: 02-27-2022 Sex Female (finding) [facility] History of Present illness Narrative 08-30-2024 Arielle Oakley APRN-WINDOWS APPLICATION PACKAGER - 08/30/2024 2:00 PM EDT Note Date & Type Note Facility 08-30-2024 History of Presen t illness Narrative Images from the original note were not included. [place] [address] SUBJECTIVE: Patient ID: Fara Mabry is a 24 y.o. female. Chief Complaint Patient presents with New Patient Patient presents for establishment. Has been many years since seen by PCP. She has two small children, 3 year old and 15 month old. States she was on Celexa several months ago and did well, but she stopped the medication. She would like to restart. Recently started a part-time job and has noticed her anxiety is much higher. The following portions of the patient's history were reviewed and updated as appropriate: allergies, current medications, past family history, past medical history, past social history, past surgical history and problem list. History reviewed. No pertinent surgical history. Past Medical History: Diagnosis Date Pyloric stenosis There is no immunization history on file for this patient. REVIEW OF SYSTEMS: Review of Systems Constitutional: Negative. HENT: Negative. Eyes: Negative for visual disturbance. Respiratory: Negative for chest tightness and shortness of breath. Cardiovascular: Negative for palpitations. Gastrointestinal: Negative. Endocrine: Negative. Genitourinary: Negative for menstrual problem and pelvic pain. Musculoskeletal: Negative. Skin: Negative. Allergic/Immunologic: Negative. Neurological: Negative for syncope and facial asymmetry. Hematological: Does not bruise/bleed easily. Psychiatric/Behavioral: Positive for decreased concentration. The patient is nervous/anxious. PHYSICAL EXAMINATION: Vitals: 08/30/24 1405 BP: 100/68 BP Site: Right Arm BP Postition: Sitting Pulse: 68 Temp: 36.6 C (97.8 F) TempSrc: Oral SpO2: 97% Weight: 57.3 kg (126 lb 6.4 oz) Height: 165.1 cm (5' 5 ) Physical Exam Vitals and nursing note reviewed. Constitutional: General: She is not in acute distress. Appearance: She is well-developed. She is not diaphoretic. HENT: Head: Normocephalic and atraumatic. Right Ear: Tympanic membrane and external ear normal. Left Ear: Tympanic membrane and external ear normal. Nose: Nose normal. Mouth/Throat: Mouth: Mucous membranes are moist. Pharynx: No oropharyngeal exudate. Eyes: General: Right eye: No discharge. Left eye: No discharge. Conjunctiva/sclera: Conjunctivae normal. Pupils: Pupils are equal, round, and reactive to light. Neck: Thyroid: No thyromegaly. Vascular: No JVD. Cardiovascular: Rate and Rhythm: Normal rate and regular rhythm. Heart sounds: Normal heart sounds. No murmur heard. No friction rub. No gallop. Pulmonary: Effort: Pulmonary effort is normal. Breath sounds: Normal breath sounds. Abdominal: General: Bowel sounds are normal. There is no distension. Palpations: Abdomen is soft. There is no mass. Tenderness: There is no abdominal tenderness. Musculoskeletal: General: Normal range of motion. Cervical back: Normal range of motion and neck supple. Lymphadenopathy: Cervical: No cervical adenopathy. Skin: General: Skin is warm and dry. Capillary Refill: Capillary refill takes less than 2 seconds. Neurological: Mental Status: She is alert and oriented to person, place, and time. Deep Tendon Reflexes: Reflexes are normal and symmetric. Psychiatric: Mood and Affect: Mood normal. Behavior: Behavior normal. Thought Content: Thought content normal. Judgment: Judgment normal. ASSESSMENT/PLAN: Fara was seen today for new patient. Diagnoses and all orders for this visit: Generalized anxiety disorder - citalopram (CeleXA) 10 mg tablet; Take 1 tablet (10 mg total) by mouth in the morning. Depression: At risk (08/30/2024) PHQ-2 PHQ-2 Score: 6 States she was on Celexa several months ago and did well, but she stopped the medication. She would like to restart. Recently started a part-time job and has noticed her anxiety is much higher. Start Celexa 10 mg oral daily. Declines influenza and COVID vaccines today. ALL QUESTIONS ANSWERED Total time spent was 35 minutes: Preparing to see the patient (e.g., review of tests) Obtaining and/or reviewing separately obtained history Performing a medically appropriate examination and/or evaluation Counseling and educating the patient/family/caregiver Ordering medications, tests, or procedures Follow-up: 6 months anxiety DANIS Mcpherson 08/30/24 1430 documented in this encounter [facility] Evaluation note 09-26-2023 Note Date & Type Note Facility 09-26-2023 Evaluation note Encounter Date Diagnosis Assessment Notes Sep, Sore throat (ICD-10 - J02.9) Sep, Viral URI with cough (ICD-10 - J06.9) Advised patient that rapid Strep tests was negative today in office. Patient declines COVID/influenza testing at this time. Advised that we will treat as viral URI. Advised that viral illnesses may last 7-10 days, antibiotics are not indicated at this time. Encouraged supportive care as directed, increase fluids and rest, Tylenol/Motrin as directed, OTC cold medications as needed that are safe in breast-feeding, OTC Flonase, cool mist humidifier, throat lozenges. Discussed infection control practices such as good hand washing and mask wearing. Work note provided, no extension allowed. Patient to follow up with PCP if symptoms persist or worsen despite treatment. Immediate eval for SOB, difficulty breathing, chest pain, fevers that do not break with antipyretic or any other concerning symptoms as reviewed on patient education handout. Patient verbalizes understanding and is agreeable to treatment plan. Patient left in stable condition [facility] Other Evaluation note Note Date & Type Note Facility Evaluation note Diagnosis Generalized anxiety disorder- [facility] general Narrative - Reported Note Date & Type Note Facility History general Narrative - Reported Type Medical History POST DEPRESSION Hospitalization History 2 CHILD BIRTHS [facility] Other Instructions Attachments Note Date & Type Note Facility Instructions The following attachments cannot be sent through Care Everywhere.Anxiety, Adult ED ([place])documented in this encounter [facility] Summary Purpose Family History No Family History Records FoundNo Family History Records Found Advance Directives No Advanced Directives Records FoundNo Advanced Directives Records Found Additional Source Comments INFORMATION SOURCE (unrecogn ized section and content) DATE CREATED AUTHOR 04/17/2023 [facility] DATE CREATED AUTHOR AUTHOR'S ORGANIZ ATION 11/25/2023 [facility] EPIC REASON FOR VISIT (unrecogniz ed section and content) Reason Comments New Patient Care Teams (unrecognized sec tion and content) Casino Attendant Relationship Specialty Start Date End Date Arielle Oakley, CAD OPERATOR-WINDOWS APPLICATION PACKAGER [address] [place] [id number] PCP - General Family Medicine 08/30/24 FOR RECORDS PERTAINING TO PATIENTS WHO ARE OR HAVE BEEN ENROLLED IN A CHEMICAL DEPENDENCY/SUBSTANCEABUSE PROGRAM, SOME INFORMATION MAY BE OMITTED. This clinical summary was aggregated from multiple sources. Caution should be exercised in using it in the provision of clinical care. This summary normalizes information from multiple sources, and as a consequence, information in this document may materially change the coding, format and clinical context of patient data. In addition, data may be omitted in some cases. CLINICAL DECISIONS SHOULD BE BASED ON THE PRIMARY CLINICAL RECORDS. [facility] provides no warranty or guarantee of the accuracy or completeness of information in this document.
[2024-12-12 17:07] LABS: Age Gdln ACOG Testing Note (.); IGP, rfx Aptima HPV ASCU Note (.)
== END 2024-12-07 21:30 | disposition home or self-care (01) ==
LOC: LAB 21:29
PROVIDERS: Visit Provider Obstetrics & Gynecology
DX: Z01.419 Encounter for gynecological examination (general) (routine) without abnormal findings (principal)
CPT/HCPCS: 88175